=== PATIENT | male | born 1950 | race Caucasian/White ===

== ENCOUNTER 2021-09-16 10:46 | Inpatient (IN) | payer BC, MEDICARE ==
--- NOTE | 2021-09-16 11:12 | XR ---
EXAMINATION TYPE: XR chest 2V DATE OF EXAM: 09/16/2021 COMPARISON: Chest x-ray May 31, 2013 HISTORY: Shortness of breath. COVID positive. TECHNIQUE: Frontal and lateral views of the chest are obtained. FINDINGS: There is no suspicious new focal air space opacity, pleural effusion, or pneumothorax seen . The cardiac silhouette size is stable and within normal limits. The osseous structures are intac t. IMPRESSION: No suspicious acute pulmonary process.
[2021-09-16] MEDS ORDERED: IPRATROPIUM-ALBUTEROL 3 ML NEB INHALATION STA (11:45)
[2021-09-16] MEDS ORDERED: DEXAMETHASONE SOD PHOSPHATE 10 MG/ML 1 ML VIAL IVP STA (11:45)
--- NOTE | 2021-09-16 12:17 | ED ---
General Adult HPI - General Chief complaint: Shortness of Breath Stated complaint: MEAGAN Time Seen by Provider: 09/16/21 11:23 Source: patient Mode of arrival: ambulatory Limitations: no limitations - History of Present Illness Initial comments: 70-year-old male with a past medical history of COPD presents to the emergency room for a chief complaint of shortness of breath. Patient states were about one week he has had upper respiratory symptoms. States that he has been short of breath for the past day or so. Patient does have a history of COPD and is an active smoker. Patient did take a Medrol Dosepak and Bactrim. He has been doing his inhaler.Patient has no other complaints at this time including chest pain, abdominal pain, nausea or vomiting, headache, or visual changes. - Related Data Home Medications Medication Instructions Recorded Confirmed Albuterol Sulfate [Albuterol 2 puff PO RT-QID PRN 09/16/21 09/16/21 Sulfate Hfa] Allergies Allergy/AdvReac Type Severity Reaction Status Date / Time No Known Allergies Allergy Verified 09/16/21 12:19 Review of Systems ROS Statement: Those systems with pertinent positive or pertinent negative responses have been documented in the HPI. ROS Other: All systems not noted in ROS Statement are negative. Past Medical History Past Medical History: COPD Additional Past Medical History / Comment(s): bronchitis History of Any Multi-Drug Resistant Organisms: None Reported Past Surgical History: Appendectomy, Joint Replacement, Tonsillectomy Past Psychological History: No Psychological Hx Reported Smoking Status: Current every day smoker Past Alcohol Use History: Occasional Past Drug Use History: None Reported General Exam Limitations: no limitations General appearance: alert, in no apparent distress Head exam: Present: atraumatic Eye exam: Present: normal appearance, PERRL, EOMI. Absent: scleral icterus, conjunctival injection ENT exam: Present: normal exam, mucous membranes moist Neck exam: Present: normal inspection, full ROM. Absent: tenderness Respiratory exam: Present: wheezes Cardiovascular Exam: Present: regular rate, normal rhythm, normal heart sounds GI/Abdominal exam: Present: soft, normal bowel sounds. Absent: distended, tenderness Course Vital Signs 09/16/21 09/16/21 09/16/21 10:51 12:08 14:17 Temperature 98.2 F Pulse Rate 77 67 66 Respiratory 18 20 18 Rate Blood Pressure 174/83 171/83 154/84 O2 Sat by Pulse 92 L 92 L 94 L Oximetry Medical Decision Making - Medical Decision Making Vitals are stable. Oxygenation on room air is consistently around 92 then. Patient does feel much improved with 2 L nasal cannula however. Physical exam does reveal wheezing throughout the lung alvarez. CBC and CMP are unremarkable. COVID-19 is detected. X-ray shows no suspicious acute pulmonary process. Patient was given a inhaler given he is covered positive and respiratory cannot do a DuoNeb apparently. However patient symptoms of COPD are persistent. Wheezing has continued and he has remained short of breath. At this point he has already done outpatient treatment with his inhaler as well as oral steroids. At this time we will admit patient for COPD exacerbation with IV steroids. Patient will get antibody infusion today again he is not being admitted for hypoxia associated with Covid, is being admitted for COPD exacerbation. Dr Max wang did accept admission. Pt does not want mechanical ventilation, very adamant about this. code status changed to full code without mechanical ventilation. this was verified with his daughter Akilah. - Lab Data Result diagrams: 09/16/21 12:08 09/16/21 12:08 Lab Results 09/16/21 09/16/21 09/16/21 Range/Units 10:58 12:08 12:08 WBC 5.7 (3.8-10.6) k/uL RBC 4.75 (4.30-5.90) m/uL Hgb 14.9 (13.0-17.5) gm/dL Hct 43.8 (39.0-53.0) % MCV 92.1 (80.0-100.0) fL MCH 31.3 (25.0-35.0) pg MCHC 34.0 (31.0-37.0) g/dL RDW 13.0 (11.5-15.5) % Plt Count 217 (150-450) k/uL MPV 8.2 Neutrophils % 62 % Lymphocytes % 24 % Monocytes % 10 % Eosinophils % 1 % Basophils % 1 % Neutrophils # 3.5 (1.3-7.7) k/uL Lymphocytes # 1.4 (1.0-4.8) k/uL Monocytes # 0.6 (0-1.0) k/uL Eosinophils # 0.0 (0-0.7) k/uL Basophils # 0.0 (0-0.2) k/uL Sodium 141 (137-145) mmol/L Potassium 4.3 (3.5-5.1) mmol/L Chloride 107 (98-107) mmol/L Carbon Dioxide 25 (22-30) mmol/L Anion Gap 9 mmol/L BUN 24 H (9-20) mg/dL Creatinine 0.99 (0.66-1.25) mg/dL Est GFR (CKD-EPI)AfAm >90 (>60 ml/min/1.73 sqM) Est GFR (CKD-EPI)NonAf 78 (>60 ml/min/1.73 sqM) Glucose 97 (74-99) mg/dL Calcium 9.0 (8.4-10.2) mg/dL Total Bilirubin 0.9 (0.2-1.3) mg/dL AST 52 (17-59) U/L ALT 68 H (4-49) U/L Alkaline Phosphatase 74 (38-126) U/L Total Protein 7.5 (6.3-8.2) g/dL Albumin 4.2 (3.5-5.0) g/dL Coronavirus (PCR) Detected A (Not Detectd) Disposition Clinical Impression: COPD exacerbation, Failure of outpatient treatment, COVID Disposition: ADMITTED IP TO THIS HOSP Is patient prescribed a controlled substance at d/c from ED?: No Referrals: None,Stated [Primary Care Provider] - 1-2 days Time of Disposition: 13:36
[2021-09-16 12:18] LABS: Basophils % (A) 1 %; Eosinophils % (A) 1 %; HCT 43.8 % (39.0-53.0); HGB 14.9 gm/dL (13.0-17.5); Lymphocytes # (A) 1.4 k/uL (1.0-4.8); Lymphocytes % (A) 24 %; MCH 31.3 pg (25.0-35.0); MCV 92.1 fL (80.0-100.0); Mean Platelet Volume 8.2; Monocytes # (A) 0.6 k/uL (0-1.0); Monocytes % (A) 10 %; Neutrophils # (A) 3.5 k/uL (1.3-7.7); Neutrophils % (A) 62 %; Platelet Count 217 k/uL (150-450); RBC 4.75 m/uL (4.30-5.90); WBC 5.7 k/uL (3.8-10.6)
[2021-09-16] MEDS ORDERED: ALBUTEROL HFA INHALER INHALATION STA (12:18)
[2021-09-16] MEDS ORDERED: TIOTROPIUM 2.5 MCG INHALER INHALATION STA (12:19)
[2021-09-16 12:27] LABS: ALT 68 U/L (4-49); AST 52 U/L (17-59); African American GFR (CKD) >90 (>60 ml/min/1.73 sqM); Albumin 4.2 g/dL (3.5-5.0); Alkaline Phosphatase 74 U/L (38-126); Anion Gap 9 mmol/L; Blood Urea Nitrogen 24 mg/dL (9-20); Carbon Dioxide 25 mmol/L (22-30); Chloride 107 mmol/L (98-107); Glucose 97 mg/dL (74-99); Non-African American GFR(CKD) 78 (>60 ml/min/1.73 sqM); Potassium 4.3 mmol/L (3.5-5.1); Sodium 141 mmol/L (137-145); Total Bilirubin 0.9 mg/dL (0.2-1.3); Total Protein 7.5 g/dL (6.3-8.2)
[2021-09-16] MEDS ORDERED: ACETAMINOPHEN TAB 500 MG TAB PO PRN (13:36)
[2021-09-16] MEDS ORDERED: CASIRIVIMAB (REGN10933) (EUA) 600 MG, IMDEVIMAB (REGN10987) (EUA) 600 MG in SODIUM CHLO... IVPB ONE (14:00)
[2021-09-16] MEDS ORDERED: SODIUM CHLORIDE 0.9% 50 ML IVPB ONE (14:00)
[2021-09-16] MEDS ORDERED: NALOXONE 0.4 MG/ML 1 ML VIAL IV PRN (14:14)
[2021-09-16] MEDS: SODIUM CHLORIDE 0.9% 1,000 ML IV SCH (14:35)
[2021-09-16] MEDS: ASCORBIC ACID 500 MG TAB PO SCH (14:35)
[2021-09-16] MEDS: ZINC SULFATE 220 MG CAP PO SCH (14:35)
[2021-09-16] MEDS: AZITHROMYCIN 500 MG TAB PO SCH (14:35)
[2021-09-16 14:48] LABS: C Reactive Protein 0.9 mg/dL (<1.0); Magnesium 2.2 mg/dL (1.6-2.3)
--- NOTE | 2021-09-16 14:54 | P.HPIM ---
History of Present Illness H&P Date: 09/16/21 Chief Complaint: dyspnea 70-year-old man, unvaccinated individual, with uncontrolled hypertension, COPD presented with dyspnea. Patient says that he started to feel short of breath starting 5 days ago. Shortness of breath got progressively worse. His sister had steroids that were prescribed to her, and patient was taking these along with Bactrim prescribed by his PCP. Despite these medications, patient did not improve. Patient reported chills, denied fevers, nausea, vomiting, chest pain, palpitations, syncope, presyncope, cough, sputum production, abdominal pain, diarrhea, constipation, dysuria, dyschezia, numbness/weakness of extremities. Patient is unvaccinated for Covid and asked about ivermectin as therapy. Patient is afebrile, 174/83, heart rate 77, 92% on room air. CBC is unremarkable. Chemistries are unremarkable. AST/ALT are mildly elevated. Co vid was positive. Chest x-ray was negative for acute pulmonary process. Review of Systems All Systems reviewed and pertinent positives and negatives noted in HPI, all other symptoms are negative Past Medical History Past Medical History: COPD Additional Past Medical History / Comment(s): bronchitis History of Any Multi-Drug Resistant Organisms: None Reported Past Surgical History: Appendectomy, Joint Replacement, Tonsillectomy Past Psychological History: No Psychological Hx Reported Smoking Status: Current every day smoker Past Alcohol Use History: Occasional Past Drug Use History: None Reported Medications and Allergies Home Medications Medication Instructions Recorded Confirmed Type Albuterol Sulfate [Albuterol 2 puff PO RT-QID PRN 09/16/21 09/16/21 History Sulfate Hfa] Allergies Allergy/AdvReac Type Severity Reaction Status Date / Time No Known Allergies Allergy Verified 09/16/21 12:19 Physical Exam Osteopathic Statement: *. No significant issues noted on an osteopathic structural exam other than those noted in the History and Physical/Consult. Vitals: Vital Signs Temp Pulse Resp BP Pulse Ox 09/16/21 14:17 66 18 154/84 94 L 09/16/21 12:08 67 20 171/83 92 L 09/16/21 10:51 98.2 F 77 18 174/83 92 L Intake and Output 09/15/21 09/16/21 09/16/21 22:59 06:59 14:59 Other: Weight 95.254 kg Gen: awake, alert HEENT: normocephalic, atraumatic, good hearing acuity, moist mucous membranes Resp: good air exchange, breathing comfortably with no accessory muscle use, diffuse wheezing without crackles CVS: good distal perfusion x 4, regular rate and rhythm without murmurs GI: soft, NTTP, ND : no SPT, no CVAT, moreno catheter not present MSK: no pitting edema, no clubbing Neuro: non-focal, moving all extremities Psych: cooperative, euthymic mood Results CBC & Chem 7: 09/16/21 12:08 09/16/21 12:08 Labs: Abnormal Lab Results - Last 24 Hours (Table) 09/16/21 09/16/21 Range/Units 10:58 12:08 BUN 24 H (9-20) mg/dL ALT 68 H (4-49) U/L Coronavirus (PCR) Detected A (Not Detectd) Assessment and Plan Assessment: COPD exacerbation Acute hypoxemic respiratory failure -Admit to inpatient, telemetry -Pulmonary consult -Dexamethasone -Albuterol inhaler every 4 hours inhalers -symbicort BID -spiriva daily -Follow inflammatory markers -Vitamin C/D, zinc -Could consider Remdesivir if pulmonary agrees -Azithromycin 500 daily for 5 days -rec'd monoclonal ab in the ER Uncontrolled hypertension -Started amlodipine and lisinopril Patient is a full code DVT prophylaxis with enoxaparin
[2021-09-16] MEDS: ALBUTEROL HFA INHALER INHALATION SCH ×3 (15:14→23:59)
[2021-09-16] MEDS: NICOTINE 21MG/24HR PATCH TRANSDERM SCH (15:31)
[2021-09-16] MEDS: lisinopriL 5 MG TAB PO SCH (15:31)
[2021-09-16] MEDS: amLODIPine 5 MG TAB PO SCH (15:31)
[2021-09-16] MEDS: SYMBICORT 80-4.5 MCG INHALER INHALATION SCH (19:32)
[2021-09-16] MEDS ORDERED: ALBUTEROL HFA INHALER INHALATION SCH (20:00)
[2021-09-17] MEDS: ALBUTEROL HFA INHALER INHALATION SCH ×5 (03:52→19:27)
[2021-09-17] MEDS: SYMBICORT 80-4.5 MCG INHALER INHALATION SCH ×2 (08:05→19:27)
[2021-09-17] MEDS: TIOTROPIUM 2.5 MCG INHALER INHALATION SCH (08:05)
[2021-09-17] MEDS: amLODIPine 5 MG TAB PO SCH (08:43)
[2021-09-17] MEDS: AZITHROMYCIN 500 MG TAB PO SCH (08:43)
[2021-09-17] MEDS: ZINC SULFATE 220 MG CAP PO SCH (08:43)
[2021-09-17] MEDS: ASCORBIC ACID 500 MG TAB PO SCH (08:43)
[2021-09-17] MEDS: ENOXAPARIN 40 MG/0.4 ML SYRINGE SQ SCH (08:43)
[2021-09-17] MEDS: lisinopriL 5 MG TAB PO SCH (08:43)
[2021-09-17] MEDS: NICOTINE 21MG/24HR PATCH TRANSDERM SCH (08:44)
[2021-09-17] MEDS ORDERED: DEXAMETHASONE SOD PHOSPHATE 10 MG/ML 1 ML VIAL IVP SCH ×2 (09:00)
[2021-09-17 09:47] LABS: Basophils # (A) 0.01 X 10*3/uL (0.00-0.10); Basophils % (A) 0.2 %; Eosinophils # (A) 0 X 10*3/uL (0.04-0.35); Eosinophils % (A) 0 %; HCT 40.5 % (39.6-50.0); HGB 13.2 g/dL (13.0-17.0); Lymphocytes # (A) 1.16 X 10*3/uL (0.90-5.00); Lymphocytes % (A) 21.6 %; MCH 30.3 pg (27.0-32.0); MCHC 32.6 g/dL (32.0-37.0); MCV 92.9 fL (80.0-97.0); Mean Platelet Volume 11.5 fL (9.5-12.2); Monocytes # (A) 0.53 X 10*3/uL (0.20-1.00); Monocytes % (A) 9.9 %; Neutrophils # (A) 3.64 X 10*3/uL (1.80-7.70); Neutrophils % (A) 67.7 %; Platelet Count 216 X 10*3/uL (140-440); RBC 4.36 X 10*6/uL (4.40-5.60); RDW 13.3 % (11.5-14.5); WBC 5.37 X 10*3/uL (4.50-10.00)
[2021-09-17 09:58] LABS: ALT 100 U/L (10-49); AST 62 U/L (14-35); African American GFR (CKD) 89.2 (60.0-200.0); Albumin 3.8 g/dL (3.8-4.9); Albumin/Globulin Ratio 1.58 (1.60-3.17); Alkaline Phosphatase 67 U/L (41-126); Bilirubin, Conjugated <0.20 mg/dL (0.20-0.40); Blood Urea Nitrogen 23.8 mg/dL (9.0-27.0); Calcium 8.8 mg/dL (8.7-10.3); Carbon Dioxide 24.3 mmol/L (20.0-27.5); Chloride 106 mmol/L (96-109); Globulin 2.4 g/dL (1.6-3.3); Glucose 113 mg/dL (70-110); LDH 204 U/L (120-246); Magnesium 2.5 mg/dL (1.5-2.4); Potassium 4.4 mmol/L (3.5-5.5); Sodium 139 mmol/L (135-145); Total Protein 6.2 g/dL (6.2-8.2)
[2021-09-17] MEDS: SODIUM CHLORIDE 0.9% 1,000 ML IV SCH ×2 (12:45→22:08)
--- NOTE | 2021-09-17 15:40 | P.PN ---
Subjective Progress Note Date: 09/17/21 Principal diagnosis: COVID-19 Patient examined and presented in a complaining of any new symptomatology. Continue Zocor. 4 L nasal cannula saturating 92%. He does complain of g eneralized weakness. Case discussed with RN in the emergency department. Objective - Vital Signs Vital signs: Vital Signs Temp 97.3 F L 09/17/21 15:07 Pulse 71 09/17/21 15:07 Resp 18 09/17/21 14:49 BP 143/68 09/17/21 15:07 Pulse Ox 96 09/17/21 15:07 Intake & Output 09/16/21 09/17/21 09/17/21 18:59 06:59 18:59 Weight 95.254 kg - Exam Gen: awake, alert HEENT: normocephalic, atraumatic, good hearing acuity, moist mucous membranes Resp: good air exchange, breathing comfortably with no accessory muscle use, diffuse wheezing without crackles improving CVS: good distal perfusion x 4, regular rate and rhythm without murmurs GI: soft, NTTP, ND : no SPT, no CVAT, moreno catheter not present MSK: no pitting edema, no clubbing Neuro: non-focal, moving all extremities Psych: cooperative, euthymic mood - Labs CBC & Chem 7: 09/17/21 05:58 09/17/21 05:58 Labs: Abnormal Lab Results - Last 24 Hours (Table) 09/16/21 09/17/21 09/17/21 Range/Units 14:25 05:58 05:58 RBC 4.36 L (4.40-5.60) X 10*6/uL Eosinophils # 0 L (0.04-0.35) X 10*3/uL Anion Gap 8.70 L (10.00-18.00) mmol/L BUN/Creatinine Ratio 23.80 H (12.00-20.00) Ratio Glucose 113 H (70-110) mg/dL Magnesium 2.5 H (1.5-2.4) mg/dL Ferritin 559.0 H (22.0-322.0) ng/mL Conjugated Bilirubin <0.20 L (0.20-0.40) mg/dL AST 62 H (14-35) U/L ALT 100 H (10-49) U/L Albumin/Globulin Ratio 1.58 L (1.60-3.17) g/dL Assessment and Plan Plan: Assessment: #1 COVID-19 pneumonia #2 acute hypoxic respiratory distress secondary to above #3 essential hypertension Plan: -Admit to medicine for close monitoring -Aspiration/fall precaution -Maintain saturations above 92%, continue with dexamethasone 6 mg to complete 10 days -Patient was also started on azithromycin 500 mg -Pending evaluation by pulmonary team -DVT prophylaxis Lovenox -Disposition anticipate discharge in 24-48 hrs. will require a 6 minute walk test prior to discharge for home oxygen evaluation
--- NOTE | 2021-09-17 18:19 | P.CNPUL ---
History of Present Illness Consult date: 09/17/21 Reason for consult: dyspnea History of present illness: 70-year-old male patient, known having history of COPD and hypertension, presented to the hospital after feeling short of breath for the past 5 days. He shortness breath was progressively getting worse. He is not vaccinated for COVID 19. The patient's family member provided him some steroids which he took along with Bactrim that was given to him through the primary care physician. T he patient did not improve. He continued to have chills and shortness of breath. Denied having any fever. No nausea or vomiting or diarrhea or abdominal pain. He came into the hospital with the patient was found to have a pulse ox of 92% on room air oxygen. The patient had a white second of 5.7 with a hemoglobin of 14.9 and a platelet count of 217. BUN was 24 with a creatinine of 0.99. Sodium was at 141. BUN was 24 with a creatinine of 0.9. Rest of the electrodes are all within normal limits. The patient had some mild transaminitis with an AST of 62, ALT of 100 and an alkaline phosphatase of 67, LDH level was 593 at a time of admission dropped down to 204 and the pro- calcitonin level was at 0.04 and the covid 19 testing by PCR came back positive. D-dimer was at 0.5. The chest x-ray showed no suspicious acute cardio pulmonary process. There was no evidence of any focal airspace disease. The patient was started on Decadron 6 mg IV every 24 hours. The patient was also started on Lovenox 40 mg subcu for DVT prophylaxis. Currently on normal saline at the rate of 75 mL an hour. His been maintained on Spiriva and albuterol HFA on an as needed basis. He was also started on examination vitamin C and vitamin D and zinc. MVV, the patient was initially given a monoclonal antibiotics. Subsequently, he was hospitalized for acute hypoxic respiratory failure and the patient is currently on 3 L of oxygen by nasal cannula. Is actively bronchospastic and wheezy. Review of Systems Constitutional: Reports chills, Reports fatigue, Reports poor appetite Eyes: denies as per HPI, denies blurred vision, denies bulging eye, denies decreased vision, denies diplopia, denies discharge, denies dry eye, denies irritation, denies itching, denies pain, denies photophobia, denies loss of peripheral vision, denies loss of vision, denies tunnel vision/blind spots Ears: deny: decreased hearing, ear discharge, earache, tinnitus Ears, nose, mouth and throat: Reports as per HPI Breasts: absent: as per HPI, gynecomastia Cardiovascular: Reports dyspnea on exertion Respiratory: Reports cough, Reports dyspnea Gastrointestinal: Reports as per HPI Genitourinary: Reports as per HPI Musculoskeletal: Reports as per HPI Musculoskeletal: absent: ankle pain, ankle stiffness, ankle swelling, as per HPI , elbow pain, elbow stiffness, elbow swelling, foot pain, foot stiffness, foot swelling, hand pain, hand stiffness, hand swelling, hip pain, hip stiffness, hip swelling, knee pain, knee stiffness, knee swelling, shoulder pain, shoulder stiffness, shoulder swelling, wrist pain, wrist stiffness, wrist swelling Integumentary: Reports as per HPI Neurological: Reports as per HPI Psychiatric: Reports as per HPI Endocrine: Reports as per HPI Hematologic/Lymphatic: Reports as per HPI Allergic/Immunologic: Reports as per HPI Past Medical History Past Medical History: COPD, Pneumonia Additional Past Medical History / Comment(s): Tracheobronchitis, BPH, gout a couple times in feet, R sided sciatica, past concussions. History of Any Multi-Drug Resistant Organisms: None Reported Past Surgical History: Appendectomy, Joint Replacement, Tonsillectomy Additional Past Surgical History / Comment(s): R hemiarthroplasty d/t fracture, dupytren's contractures/bilaterally Past Anesthesia/Blood Transfusion Reactions: No Reported Reaction Smoking Status: Current every day smoker - Past Family History Father Additional Family Medical History / Comment(s): Lung disease/smoker. Mother Additional Family Medical History / Comment(s): Lung disease/smoker Medications and Allergies Home Medications Medication Instructions Recorded Confirmed Type Albuterol Sulfate [Albuterol 2 puff PO RT-QID PRN 09/16/21 09/16/21 History Sulfate Hfa] Allergies Allergy/AdvReac Type Severity Reaction Status Date / Time No Known Allergies Allergy Verified 09/16/21 12:19 Physical Exam Vitals: Vital Signs Temp Pulse Pulse Resp BP BP Pulse Ox 09/17/21 15:07 97.3 F L 71 143/68 96 09/17/21 14:49 98.5 F 76 18 132/66 97 09/17/21 13:23 98.4 F 09/17/21 12:44 66 18 124/74 93 L 09/17/21 06:00 98.7 F 84 20 124/100 93 L 09/17/21 03:20 97.3 F L 67 18 117/95 100 09/16/21 22:40 98.7 F 76 16 139/92 96 Intake and Output 09/17/21 09/17/21 09/17/21 06:59 14:59 22:59 Other: Weight 95.254 kg Gen. appearance the patient is calm and comfortable and the patient's currently on 3 L of Oxymizer cannula to bring his saturation above 90% at 96% saturation. Head exam was generally normal. There was no scleral icterus or corneal arcus. Mucous membranes were moist. HEENT: normocephalic, atraumatic, good hearing acuity, moist mucous membranes Resp: good air exchange, breathing comfortably with no accessory muscle use, diffuse wheezing without crackles Cardiac exam revealed the PMI to be normally situated and sized. The rhythm was regular and no extrasystoles were noted during several minutes of auscultation. The first and second heart sounds were normal and physiologic splitting of the second heart sound was noted. There were no murmurs, rubs, clicks, or gallops. Abdominal exam revealed normal bowel sounds. The abdomen was soft, non-tender, and without masses, organomegaly, or appreciable enlargement of the abdominal aorta. : no SPT, no CVAT, moreno catheter not present Examination of the extremities revealed easily palpable radial, femoral and pedal pulses. There was no cyanosis, clubbing or edema. Examination of the skin revealed no evidence of significant rashes, suspicious appearing nevi or other concerning lesions. Neurologically, the patient is awake and alert and the patient does not have any focal neurological deficit. Cranial nerves are essentially intact. Psych: cooperative, euthymic mood Results - Laboratory Findings CBC and BMP: 09/17/21 05:58 09/17/21 05:58 PT/INR, D-dimer D-Dimer 0.50 mg/L FEU (<0.60) 09/17/21 05:58 Abnormal lab findings: Abnormal Labs 09/16/21 09/16/21 09/16/21 10:58 12:08 14:25 RBC Eosinophils # Anion Gap BUN 24 H BUN/Creatinine Ratio Glucose Magnesium Ferritin 559.0 H Conjugated Bilirubin AST ALT 68 H Albumin/Globulin Ratio Coronavirus (PCR) Detected A 09/17/21 09/17/21 05:58 05:58 RBC 4.36 L Eosinophils # 0 L Anion Gap 8.70 L BUN BUN/Creatinine Ratio 23.80 H Glucose 113 H Magnesium 2.5 H Ferritin Conjugated Bilirubin <0.20 L AST 62 H ALT 100 H Albumin/Globulin Ratio 1.58 L Coronavirus (PCR) - Diagnostic Findings Chest x-ray: image reviewed Assessment and Plan Plan: 1 acute COVID 19 infection, questionable pneumonia. Chest x-ray is free of any pulmonary infiltrates at this point in time. The patient was mildly hypoxic at time of admission currently is on 3 L by nasal cannula to maintain saturation above 90%. The patient received monoclonal antibodies in the emergency department. Currently is hospitalized for an acute COVID 19 related pneumonia possibly and COPD exacerbation. The patient is not vaccinated for COVID 19. 2 acute hypoxic respiratory failure currently on 3 L by nasal cannula. 3 acute COPD exacerbation secondary to above 4 hypertension 5 mild elevation in inflammatory markers second or COVID 19 infection 6 smoker Plan The patient will be kept on oxygen and the fluid be titrated to maintain saturation above 90% Discontinue the Decadron and put the patient on IV Solu Medrol 60 mg every 6 hours regarding his COPD exacerbation COVID 19 related pneumonia. Start the patient on Remdesivir per protocol Continue combination of Symbicort and Spiriva as maintenance for COPD Physical examination Lovenox 40 mg subcu for DVT prophylaxis Chest x-ray is free of any acute pulmonary infiltrates Monitor oxygenation we'll continue to follow. Repeat chest x-ray with next 24- 48 hours.
[2021-09-17] MEDS ORDERED: REMDESIVIR 200 MG in SODIUM CHLORIDE 0.9% 250 ML IVPB ONE (19:00)
[2021-09-17] MEDS: methylPREDNISolone SOD SUCCI 125 MG/2 ML VIAL IV SCH (23:28)
[2021-09-18] MEDS: methylPREDNISolone SOD SUCCI 125 MG/2 ML VIAL IV SCH ×4 (05:39→23:39)
[2021-09-18] MEDS: SODIUM CHLORIDE 0.9% 1,000 ML IV SCH ×3 (06:28→23:39)
[2021-09-18 07:40] LABS: Glucose,Whole Blood 147 mg/dL (75-99)
[2021-09-18] MEDS: ZINC SULFATE 220 MG CAP PO SCH (09:08)
[2021-09-18] MEDS: AZITHROMYCIN 500 MG TAB PO SCH (09:08)
[2021-09-18] MEDS: lisinopriL 5 MG TAB PO SCH (09:08)
[2021-09-18] MEDS: amLODIPine 5 MG TAB PO SCH (09:08)
[2021-09-18] MEDS: ASCORBIC ACID 500 MG TAB PO SCH (09:08)
[2021-09-18] MEDS: ENOXAPARIN 40 MG/0.4 ML SYRINGE SQ SCH (09:09)
[2021-09-18] MEDS: NICOTINE 21MG/24HR PATCH TRANSDERM SCH (09:09)
[2021-09-18] MEDS: ALBUTEROL HFA INHALER INHALATION SCH ×4 (09:45→19:17)
[2021-09-18] MEDS: TIOTROPIUM 2.5 MCG INHALER INHALATION SCH (09:45)
[2021-09-18] MEDS: SYMBICORT 80-4.5 MCG INHALER INHALATION SCH ×2 (09:45→17:36)
[2021-09-18 10:16] LABS: African American GFR (CKD) >90 (>60 ml/min/1.73 sqM); Anion Gap 8 mmol/L; Blood Urea Nitrogen 29 mg/dL (9-20); Calcium 9.1 mg/dL (8.4-10.2); Carbon Dioxide 25 mmol/L (22-30); Chloride 107 mmol/L (98-107); Glucose 157 mg/dL (74-99); Non-African American GFR(CKD) 83 (>60 ml/min/1.73 sqM); Potassium 4.9 mmol/L (3.5-5.1); Sodium 140 mmol/L (137-145)
[2021-09-18 10:26] LABS: Basophils % (A) 0 %; Eosinophils % (A) 0 %; HCT 47.5 % (39.0-53.0); Lymphocytes # (A) 0.9 k/uL (1.0-4.8); Lymphocytes % (A) 11 %; MCH 30.7 pg (25.0-35.0); MCHC 31.6 g/dL (31.0-37.0); Mean Platelet Volume 8.3; Monocytes # (A) 0.2 k/uL (0-1.0); Monocytes % (A) 3 %; Neutrophils % (A) 86 %; Platelet Count 263 k/uL (150-450); RBC 4.88 m/uL (4.30-5.90); RDW 13.7 % (11.5-15.5); WBC 8.2 k/uL (3.8-10.6)
[2021-09-18 10:33] LABS: MCV 97.2 fL (80.0-100.0)
[2021-09-18 11:51] LABS: Glucose,Whole Blood 201 mg/dL (75-99)
--- NOTE | 2021-09-18 12:20 | P.PN ---
Subjective Progress Note Date: 09/18/21 70-year-old male patient, known having history of COPD and hypertension, presented to the hospital after feeling short of breath for the past 5 days. He shortness breath was progressively getting worse. He is not vaccinated for COVID 19. The patient's family member provided him some steroids which he took along with Bactrim that was given to him through the primary care physician. The patient did not improve. He continued to have chills and shortness of breath. Denied having any fever. No nausea or vomiting or diarrhea or abdominal pain. He came into the hospital with the patient was found to have a pulse ox of 92% on room air oxygen. The patient had a white second of 5.7 with a hemoglobin of 14.9 and a platelet count of 217. BUN was 24 with a creatinine of 0.99. Sodium was at 141. BUN was 24 with a creatinine of 0.9. Rest of the electrodes are all within normal limits. The patient had some mild transaminitis with an AST of 62, ALT of 100 and an alkaline phosphatase of 67, LDH level was 593 at a time of admission dropped down to 204 and the pro- calcitonin level was at 0.04 and the covid 19 testing by PCR came back positive. D-dimer was at 0.5. The chest x-ray showed no suspicious acute cardio pulmonary process. There was no evidence of any focal airspace disease. The patient was started on Decadron 6 mg IV every 24 hours. The patient was also started on Lovenox 40 mg subcu for DVT prophylaxis. Currently on normal saline at the rate of 75 mL an hour. His been maintained on Spiriva and albuterol HFA on an as needed basis. He was also started on examination vitamin C and vitamin D and zinc. MVV, the patient was initially given a monoclonal antibiotics. Subsequently, he was hospitalized for acute hypoxic respiratory failure and the patient is currently on 3 L of oxygen by nasal cannula. Is actively bronchospastic and wheezy. The patient is seen today 09/18/2021 in follow-up on the regular medical floor. He is currently resting comfortably in bed. Awake and alert in no acute distress. He states he is breathing about the same today compared to yesterday. He is maintaining O2 saturation in the mid 90s on 3 L/m per nasal cannula. He is afebrile. Hemodynamically stable. White count 8.2. Hemoglobin 15.0. Lymphocytes 0.9. Sodium 140. Potassium 4.9. Creatinine 0.94. Glucose 157. He remains on Symbicort, Spiriva, albuterol, IV Solu-Medrol. This is day #2 of Remdesivir. NicoDerm patch in place. Continued on vitamin supplements and Lo venox. Empiric antibiotics in the form of azithromycin. Objective - Vital Signs Vital signs: Vital Signs Temp 97.6 F 09/18/21 07:42 Pulse 53 L 09/18/21 07:42 Resp 18 09/18/21 07:42 BP 123/67 09/18/21 07:42 Pulse Ox 97 09/18/21 07:42 Intake & Output 09/17/21 09/18/21 09/18/21 18:59 06:59 18:59 Intake Total 237 Balance 237 Weight 95.254 kg Intake: Oral 237 Other: # Voids 1 - Exam Gen. appearance: This is a pleasant 70-year-old male patient, calm and comfortable and the patient's currently on 3 L of oxygen per nasal cannula Head exam was generally normal. There was no scleral icterus or corneal arcus. Mucous membranes were moist. HEENT: normocephalic, atraumatic, good hearing acuity, moist mucous membranes Resp: good air exchange, breathing comfortably with no accessory muscle use, diffuse wheezing without crackles Cardiac exam revealed the PMI to be normally situated and sized. The rhythm was regular and no extrasystoles were noted during several minutes of auscultation. The first and second heart sounds were normal and physiologic splitting of the second heart sound was noted. There were no murmurs, rubs, clicks, or gallops. Abdominal exam revealed normal bowel sounds. The abdomen was soft, non-tender, and without masses, organomegaly, or appreciable enlargement of the abdominal aorta. : no SPT, no CVAT, moreno catheter not present Examination of the extremities revealed easily palpable radial, femoral and [place] pulses. There was no cyanosis, clubbing or edema. Examination of the skin revealed no evidence of significant rashes, suspicious appearing nevi or other concerning lesions. Neurologically, the patient is awake and alert and the patient does not have any focal neurological deficit. Cranial nerves are essentially intact. Psych: cooperative, euthymic mood - Labs CBC & Chem 7: 09/18/21 09:43 09/18/21 09:43 Labs: Abnormal Lab Results - Last 24 Hours (Table) 09/18/21 09/18/21 09/18/21 Range/Units 07:38 09:43 09:43 Lymphocytes # 0.9 L (1.0-4.8) k/uL BUN 29 H (9-20) mg/dL Glucose 157 H (74-99) mg/dL POC Glucose (mg/dL) 147 H (75-99) mg/dL 09/18/21 Range/Units 11:49 Lymphocytes # (1.0-4.8) k/uL BUN (9-20) mg/dL Glucose (74-99) mg/dL POC Glucose (mg/dL) 201 H (75-99) mg/dL Assessment and Plan Assessment: 1 acute COVID 19 infection, questionable pneumonia. Chest x-ray is free of any pulmonary infiltrates at this point in time. The patient was mildly hypoxic at time of admission currently is on 3 L by nasal cannula to maintain saturation above 90%. The patient received monoclonal antibodies in the emergency department. Currently is hospitalized for an acute COVID 19 related pneumonia possibly and COPD exacerbation. The patient is not vaccinated for COVID 19. He was initiated on Remdesivir. 2 acute hypoxic respiratory failure currently on 3 L by nasal cannula. 3 acute COPD exacerbation secondary to above 4 hypertension 5 mild elevation in inflammatory markers second or COVID 19 infection 6 smoker Plan: The patient was seen and evaluated today Stable and on 3 L nasal cannula Day #2 of Remdesivir Continue Lovenox, IV Cymetra, vitamin supplements Continue Symbicort, Spiriva, albuterol Educated regarding the importance of complete smoking cessation NicoDerm patch in place Follow-up chest x-ray, inflammatory markers in the a.m. We will continue to follow I, the cosigning physician, performed a history & physical examination of the patient. Lungs sounds bilateral end expiratory wheeze. Maintaining good O2 saturations in the 90s on 3 L/m per nasal cannula. I discussed the assessment and plan of care with my nurse practitioner, Akilah Spencer. I attest to the above note as dictated by her.
[2021-09-18] MEDS: INSULIN ASPART (NovoLOG) 100 UNIT/ML VIAL SQ SCH ×3 (13:26→21:14)
[2021-09-18 13:33] VITALS: BMI 26.9
--- NOTE | 2021-09-18 16:50 | P.PN ---
Subjective Progress Note Date: 09/18/21 Principal diagnosis: COVID-19 Patient was examined at bedside today not complaining of any worsening symptomatology. Continues to complains of shortness of breath. Patient was a mbulating to the bathroom and started tripod however maintain saturations continues to be on 3 L. Case discussed with RN. Objective - Vital Signs Vital signs: Vital Signs Temp 97.9 F 09/18/21 14:00 Pulse 81 09/18/21 14:00 Resp 20 09/18/21 14:00 BP 158/77 09/18/21 14:00 Pulse Ox 97 09/18/21 07:42 Intake & Output 09/17/21 09/18/21 09/18/21 18:59 06:59 18:59 Intake Total 237 Balance 237 Weight 95.254 kg 95.254 kg Intake: Oral 237 Other: # Voids 1 - Exam Gen: awake, alert HEENT: normocephalic, atraumatic, good hearing acuity, moist mucous membranes Resp: good air exchange, breathing comfortably with no accessory muscle use, diffuse wheezing without crackles improving slightly improving compared to yesterday however significant wheezing. CVS: good distal perfusion x 4, regular rate and rhythm without murmurs GI: soft, NTTP, ND : no SPT, no CVAT, moreno catheter not present MSK: no pitting edema, no clubbing Neuro: non-focal, moving all extremities Psych: cooperative, euthymic mood - Labs CBC & Chem 7: 09/18/21 09:43 09/18/21 09:43 Labs: Abnormal Lab Results - Last 24 Hours (Table) 09/18/21 09/18/21 09/18/21 Range/Units 07:38 09:43 09:43 Lymphocytes # 0.9 L (1.0-4.8) k/uL BUN 29 H (9-20) mg/dL Glucose 157 H (74-99) mg/dL POC Glucose (mg/dL) 147 H (75-99) mg/dL 09/18/21 Range/Units 11:49 Lymphocytes # (1.0-4.8) k/uL BUN (9-20) mg/dL Glucose (74-99) mg/dL POC Glucose (mg/dL) 201 H (75-99) mg/dL Assessment and Plan Plan: Assessment: #1 COVID-19 pneumonia #2 acute hypoxic respiratory distress secondary to above #3 essential hypertension #4 COPD exacerbation secondary to above Plan: -Admit to medicine for close monitoring -Aspiration/fall precaution -Maintain saturations above 92%, eczematous on switched to methylprednisolone ev kate 6 hours by pulmonary. -Patient is also concerned as severe -Patient was also started on azithromycin 500 mg -DVT prophylaxis Lovenox -Disposition anticipate discharge in 24-48 hrs. will require a 6 minute walk test prior to discharge for home oxygen evaluation
[2021-09-18 17:42] LABS: Glucose,Whole Blood 147 mg/dL (75-99)
[2021-09-18] MEDS: REMDESIVIR 100 MG in SODIUM CHLORIDE 0.9% 250 ML IVPB SCH (19:47)
[2021-09-18 21:06] LABS: Glucose,Whole Blood 117 mg/dL (75-99)
[2021-09-19] MEDS: methylPREDNISolone SOD SUCCI 125 MG/2 ML VIAL IV SCH (05:45)
[2021-09-19 07:37] LABS: Glucose,Whole Blood 157 mg/dL (75-99)
[2021-09-19] MEDS: ZINC SULFATE 220 MG CAP PO SCH (07:52)
[2021-09-19] MEDS: AZITHROMYCIN 500 MG TAB PO SCH (07:52)
[2021-09-19] MEDS: amLODIPine 5 MG TAB PO SCH (07:52)
[2021-09-19] MEDS: INSULIN ASPART (NovoLOG) 100 UNIT/ML VIAL SQ SCH ×4 (07:53→20:48)
[2021-09-19] MEDS: NICOTINE 21MG/24HR PATCH TRANSDERM SCH (07:53)
[2021-09-19] MEDS: lisinopriL 5 MG TAB PO SCH (07:53)
[2021-09-19] MEDS: ASCORBIC ACID 500 MG TAB PO SCH (07:53)
[2021-09-19] MEDS: ENOXAPARIN 40 MG/0.4 ML SYRINGE SQ SCH (07:53)
--- NOTE | 2021-09-19 08:18 | XR ---
EXAMINATION TYPE: XR chest 1V portable DATE OF EXAM: 09/19/2021 CLINICAL HISTORY: Difficulty breathing and covid progress study. TECHNIQUE: Single AP portable frontal view of the chest is obtained. COMPARISON: Chest x-ray from 3 days earlier FINDINGS: There is chronic parenchymal fibrotic change with some increased opacity in the periphery of the right mid lung and basilar level. Cardiac size is stable and upper limits of normal. Osseous s tructures are intact. IMPRESSION: Developing peripheral right mid and basilar opacities present consistent with history of covid-19 infection.
[2021-09-19] MEDS: SYMBICORT 80-4.5 MCG INHALER INHALATION SCH ×2 (08:28→21:34)
[2021-09-19] MEDS: TIOTROPIUM 2.5 MCG INHALER INHALATION SCH (08:28)
[2021-09-19] MEDS: ALBUTEROL HFA INHALER INHALATION SCH ×4 (08:28→21:34)
[2021-09-19 09:39] LABS: C Reactive Protein <0.5 mg/dL (<1.0); LDH 452 U/L (313-618)
[2021-09-19 12:14] LABS: Glucose,Whole Blood 217 mg/dL (75-99)
--- NOTE | 2021-09-19 13:33 | P.PN ---
Subjective Progress Note Date: 09/19/21 70-year-old male patient, known having history of COPD and hypertension, presented to the hospital after feeling short of breath for the past 5 days. He shortness breath was progressively getting worse. He is not vaccinated for COVID 19. The patient's family member provided him some steroids which he took along with Bactrim that was given to him through the primary care physician. The patient did not improve. He continued to have chills and shortness of breath. Denied having any fever. No nausea or vomiting or diarrhea or abdominal pain. He came into the hospital with the patient was found to have a pulse ox of 92% on room air oxygen. The patient had a white second of 5.7 with a hemoglobin of 14.9 and a platelet count of 217. BUN was 24 with a creatinine of 0.99. Sodium was at 141. BUN was 24 with a creatinine of 0.9. Rest of the electrodes are all within normal limits. The patient had some mild transaminitis with an AST of 62, ALT of 100 and an alkaline phosphatase of 67, LDH level was 593 at a time of admission dropped down to 204 and the pro- calcitonin level was at 0.04 and the covid 19 testing by PCR came back positive. D-dimer was at 0.5. The chest x-ray showed no suspicious acute cardio pulmonary process. There was no evidence of any focal airspace disease. The patient was started on Decadron 6 mg IV every 24 hours. The patient was also started on Lovenox 40 mg subcu for DVT prophylaxis. Currently on normal saline at the rate of 75 mL an hour. His been maintained on Spiriva and albuterol HFA on an as needed basis. He was also started on examination vitamin C and vitamin D and zinc. MVV, the patient was initially given a monoclonal antibiotics. Subsequently, he was hospitalized for acute hypoxic respiratory failure and the patient is currently on 3 L of oxygen by nasal cannula. Is actively bronchospastic and wheezy. The patient is seen today 09/18/2021 in follow-up on the regular medical floor. He is currently resting comfortably in bed. Awake and alert in no acute distress. He states he is breathing about the same today compared to yesterday. He is maintaining O2 saturation in the mid 90s on 3 L/m per nasal cannula. He is afebrile. Hemodynamically stable. White count 8.2. Hemoglobin 15.0. Lymphocytes 0.9. Sodium 140. Potassium 4.9. Creatinine 0.94. Glucose 157. He remains on Symbicort, Spiriva, albuterol, IV Solu-Medrol. This is day #2 of Remdesivir. NicoDerm patch in place. Continued on vitamin supplements and Lo venox. Empiric antibiotics in the form of azithromycin. The patient is seen today 09/19/2021 in follow-up on the regular medical floor. Awake and alert in no acute distress. He did decline his Remdesivir today. Chest x-ray reveals peripheral right mid and basilar opacities persistent and consistent with COVID-19 infection He is continued on Symbicort, Spiriva, Decadron, Lovenox. NicoDerm patch in place. Maintaining O2 saturations in the mid 90s on 3 L/m per nasal cannula. He is afebrile. Hemodynamically stable. Blood glucose 212. D-dimer 0.54. LDH 452. C-reactive protein less than 0.5. Objective - Vital Signs Vital signs: Vital Signs Temp 97.6 F 09/19/21 04:43 Pulse 79 09/19/21 04:43 Resp 18 09/19/21 04:43 BP 117/61 09/19/21 04:43 Pulse Ox 98 09/19/21 04:43 Intake & Output 09/18/21 09/19/21 09/19/21 18:59 06:59 18:59 Intake Total 1137 900 Balance 1137 900 Weight 95.254 kg Intake: Intake, IV Titration 900 900 Amount Sodium Chloride 0.9% 1, 900 900 000 ml @ 75 mls/hr IV . [id number] [facility] Rx#:[id number] Oral 237 Other: Voiding Method Urinal - Exam Gen. appearance: This is a pleasant 70-year-old male patient, calm and comfortable and the patient's currently on 3 L of oxygen per nasal cannula Head exam was generally normal. There was no scleral icterus or corneal arcus. Mucous membranes were moist. HEENT: normocephalic, atraumatic, good hearing acuity, moist mucous membranes Resp: good air exchange, breathing comfortably with no accessory muscle use, diffuse wheezing with scattered crackles Cardiac exam revealed the PMI to be normally situated and sized. The rhythm was regular and no extrasystoles were noted during several minutes of auscultation. The first and second heart sounds were normal and physiologic splitting of the second heart sound was noted. There were no murmurs, rubs, clicks, or gallops. Abdominal exam revealed normal bowel sounds. The abdomen was soft, non-tender, and without masses, organomegaly, or appreciable enlargement of the abdominal aorta. : no SPT, no CVAT, moreno catheter not present Examination of the extremities revealed easily palpable radial, femoral and pedal pulses. There was no cyanosis, clubbing or edema. Examination of the skin revealed no evidence of significant rashes, suspicious appearing nevi or other concerning lesions. Neurologically, the patient is awake and alert and the patient does not have any focal neurological deficit. Cranial nerves are essentially intact. Psych: cooperative, euthymic mood - Labs CBC & Chem 7: 09/18/21 09:43 09/18/21 09:43 Labs: Abnormal Lab Results - Last 24 Hours (Table) 09/18/21 09/18/21 09/19/21 Range/Units 17:35 20:59 07:35 POC Glucose (mg/dL) 147 H 117 H 157 H (75-99) mg/dL 09/19/21 Range/Units 12:12 POC Glucose (mg/dL) 217 H (75-99) mg/dL Assessment and Plan Assessment: 1 acute COVID 19 infection, questionable pneumonia. Chest x-ray is free of any pulmonary infiltrates at this point in time. The patient was mildly hypoxic at time of admission currently is on 3 L by nasal cannula to maintain saturation above 90%. The patient received monoclonal antibodies in the emergency department. Currently is hospitalized for an acute COVID 19 related pneumonia possibly and COPD exacerbation. The patient is not vaccinated for COVID 19. He was initiated on Remdesivir. 2 acute hypoxic respiratory failure currently on 3 L by nasal cannula. 3 acute COPD exacerbation secondary to above 4 hypertension 5 mild elevation in inflammatory markers second or COVID 19 infection 6 smoker Plan: The patient was seen and evaluated today Chest x-ray and labs reviewed Stable and on 3 L nasal cannula Declined his Remdesivir Continue Lovenox, IV Solu-Medrol, vitamin supplements Continue Symbicort, Spiriva, albuterol NicoDerm patch in place Probable home in the a.m. We will continue to follow Neftali, the cosigning physician, jonah a history & physical examination of the patient. Lungs sounds bilateral end expiratory wheeze with few scattered crackles. Maintaining O2 saturations in the 90s on 3 L/m per nasal cannula. I discussed the assessment and plan of care with my nurse practitioner, Akilah Spencer. I attest to the above note as dictated by her.
[2021-09-19 16:54] LABS: Glucose,Whole Blood 81 mg/dL (75-99)
--- NOTE | 2021-09-19 17:14 | P.PN ---
Subjective Progress Note Date: 09/19/21 History of present illness: 70-year-old male patient, known having history of COPD and hypertension, presen alvaro to the hospital after feeling short of breath for the past 5 days. He shortness breath was progressively getting worse. He is not vaccinated for COVID 19. The patient's family member provided him some steroids which he took along with Bactrim that was given to him through the primary care physician. The patient did not improve. He continued to have chills and shortness of breath. Denied having any fever. No nausea or vomiting or diarrhea or abdominal pain. He came into the hospital with the patient was found to have a pulse ox of 92% on room air oxygen. The patient had a white second of 5.7 with a hemoglobin of 14.9 and a platelet count of 217. BUN was 24 with a creatinine of 0.99. Sodium was at 141. BUN was 24 with a creatinine of 0.9. Rest of the electrodes are all within normal limits. The patient had some mild transaminitis with an AST of 62, ALT of 100 and an alkaline phosphatase of 67, LDH level was 593 at a time of admission dropped down to 204 and the pro-calc itonin level was at 0.04 and the covid 19 testing by PCR came back positive. D- dimer was at 0.5. The chest x-ray showed no suspicious acute cardio pulmonary process. There was no evidence of any focal airspace disease. The patient was started on Decadron 6 mg IV every 24 hours. The patient was also started on Lovenox 40 mg subcu for DVT prophylaxis. Currently on normal saline at the rate of 75 mL an hour. His been maintained on Spiriva and albuterol HFA on an as needed basis. He was also started on examination vitamin C and vitamin D and zinc. MVV, the patient was initially given a monoclonal antibiotics. Subsequently, he was hospitalized for acute hypoxic respiratory failure and the patient is currently on 3 L of oxygen by nasal cannula. Is actively bronchospastic and wheezy. The patient is seen today 09/18/2021 in follow-up on the regular medical floor. He is currently resting comfortably in bed. Awake and alert in no acute distress. He states he is breathing about the same today compared to yesterday. He is maintaining O2 saturation in the mid 90s on 3 L/m per nasal cannula. He is afebrile. Hemodynamically stable. White count 8.2. Hemoglobin 15.0. Lymphocytes 0.9. Sodium 140. Potassium 4.9. Creatinine 0.94. Glucose 157. He remains on Symbicort, Spiriva, albuterol, IV Solu-Medrol. This is day #2 of Remdesivir. NicoDerm patch in place. Continued on vitamin supplements and Lovenox. Empiric antibiotics in the form of azithromycin. Interval history: Patient was examined at bedside. He still reports exertional dyspnea. Denies any chest pain. Is currently on 3 L nasal cannula satting 98%. Discussed with RN pulmonary plan to switch IV sedative withdrawal to oral Decadron. Patient declined Remdesivir today Objective - Vital Signs Vital signs: Vital Signs Temp 98.4 F 09/19/21 14:00 Pulse 84 09/19/21 14:00 Resp 18 09/19/21 04:43 BP 118/64 09/19/21 14:00 Pulse Ox 92 L 09/19/21 14:00 Intake & Output 09/18/21 09/19/21 09/19/21 18:59 06:59 18:59 Intake Total 1137 900 Output Total 550 Balance 1137 900 -550 Weight 95.254 kg Intake: Intake, IV Titration 900 900 Amount Sodium Chloride 0.9% 1, 900 900 000 ml @ 75 mls/hr IV . [id number] [facility] Rx#:[id number] Oral 237 Output: Urine 550 Other: Voiding Method Urinal - Exam Gen. appearance: This is a pleasant 70-year-old male patient, calm and comfortable and the patient's currently on 3 L of oxygen per nasal cannula Head exam was generally normal. There was no scleral icterus or corneal arcus. Mucous membranes were moist. HEENT: normocephalic, atraumatic, good hearing acuity, moist mucous membranes Resp: good air exchange, breathing comfortably with no accessory muscle use, diffuse wheezing with scattered crackles Cardiac exam revealed the PMI to be normally situated and sized. The rhythm was regular and no extrasystoles were noted during several minutes of auscultation. The first and second heart sounds were normal and physiologic splitting of the second heart sound was noted. There were no murmurs, rubs, clicks, or gallops. Abdominal exam revealed normal bowel sounds. The abdomen was soft, non-tender, and without masses, organomegaly, or appreciable enlargement of the abdominal aorta. : no SPT, no CVAT, moreno catheter not present Examination of the extremities revealed easily palpable radial, femoral and pedal pulses. There was no cyanosis, clubbing or edema. Examination of the skin revealed no evidence of significant rashes, suspicious appearing nevi or other concerning lesions. Neurologically, the patient is awake and alert and the patient does not have any focal neurological deficit. Cranial nerves are essentially intact. Psych: cooperative, euthymic mood - Labs CBC & Chem 7: 09/18/21 09:43 09/18/21 09:43 Labs: Abnormal Lab Results - Last 24 Hours (Table) 09/18/21 09/18/21 09/19/21 Range/Units 17:35 20:59 07:35 POC Glucose (mg/dL) 147 H 117 H 157 H (75-99) mg/dL 09/19/21 Range/Units 12:12 POC Glucose (mg/dL) 217 H (75-99) mg/dL Assessment and Plan Plan: 1 acute COVID 19 infection, questionable pneumonia. Chest x-ray is free of any pulmonary infiltrates at this point in time. The patient was mildly hypoxic at time of admission currently is on 3 L by nasal cannula to maintain saturation above 90%. The patient received monoclonal antibodies in the emergency department. Currently is hospitalized for an acute COVID 19 related pneumonia possibly and COPD exacerbation. The patient is not vaccinated for COVID 19. He was initiated on Remdesivir. 2 acute hypoxic respiratory failure currently on 3 L by nasal cannula. 3 acute COPD exacerbation secondary to above 4 hypertension 5 mild elevation in inflammatory markers second or COVID 19 infection 6 smoker Plan: The patient was seen and evaluated today Chest x-ray and labs reviewed Stable and on 3 L nasal cannula Declined his Remdesivir Continue Lovenox, IV Solu-Medrol, vitamin supplements Continue Symbicort, Spiriva, albuterol NicoDerm patch in place Probable home in the a.m. We will continue to follow
[2021-09-19] MEDS: REMDESIVIR 100 MG in SODIUM CHLORIDE 0.9% 250 ML IVPB SCH (19:38)
[2021-09-19 20:47] LABS: Glucose,Whole Blood 204 mg/dL (75-99)
[2021-09-19] MEDS: SODIUM CHLORIDE 0.9% 1,000 ML IV SCH (20:49)
[2021-09-20 07:46] LABS: Glucose,Whole Blood 87 mg/dL (75-99)
[2021-09-20 08:17] LABS: HCT 45.9 % (39.0-53.0); HGB 14.1 gm/dL (13.0-17.5); Hypochromasia Slight; MCH 30.2 pg (25.0-35.0); MCHC 30.6 g/dL (31.0-37.0); MCV 98.4 fL (80.0-100.0); Mean Platelet Volume 8.4; Platelet Count 255 k/uL (150-450); RBC 4.66 m/uL (4.30-5.90); RDW 13.7 % (11.5-15.5); WBC 9.4 k/uL (3.8-10.6)
[2021-09-20 08:30] LABS: ALT 59 U/L (4-49); AST 27 U/L (17-59); African American GFR (CKD) >90 (>60 ml/min/1.73 sqM); Albumin 3.4 g/dL (3.5-5.0); Alkaline Phosphatase 67 U/L (38-126); Anion Gap 3 mmol/L; Blood Urea Nitrogen 31 mg/dL (9-20); Calcium 8.8 mg/dL (8.4-10.2); Carbon Dioxide 30 mmol/L (22-30); Chloride 108 mmol/L (98-107); Glucose 85 mg/dL (74-99); Magnesium 2.3 mg/dL (1.6-2.3); Non-African American GFR(CKD) 78 (>60 ml/min/1.73 sqM); Potassium 4.3 mmol/L (3.5-5.1); Sodium 141 mmol/L (137-145); Total Bilirubin 0.6 mg/dL (0.2-1.3); Total Protein 6.3 g/dL (6.3-8.2)
[2021-09-20 08:53] VITALS: RESP 17
[2021-09-20] MEDS: ENOXAPARIN 40 MG/0.4 ML SYRINGE SQ SCH (08:59)
[2021-09-20] MEDS: AZITHROMYCIN 500 MG TAB PO SCH (09:00)
[2021-09-20] MEDS: amLODIPine 5 MG TAB PO SCH (09:00)
[2021-09-20] MEDS: INSULIN ASPART (NovoLOG) 100 UNIT/ML VIAL SQ SCH ×3 (09:00→17:28)
[2021-09-20] MEDS ORDERED: dexAMETHasone 2 MG TAB PO SCH (09:00)
[2021-09-20] MEDS: lisinopriL 5 MG TAB PO SCH (09:00)
[2021-09-20] MEDS: NICOTINE 21MG/24HR PATCH TRANSDERM SCH (09:00)
[2021-09-20] MEDS: ZINC SULFATE 220 MG CAP PO SCH (09:00)
[2021-09-20] MEDS: ASCORBIC ACID 500 MG TAB PO SCH (09:00)
[2021-09-20] MEDS: SYMBICORT 80-4.5 MCG INHALER INHALATION SCH (09:43)
[2021-09-20] MEDS: TIOTROPIUM 2.5 MCG INHALER INHALATION SCH (09:43)
[2021-09-20] MEDS: ALBUTEROL HFA INHALER INHALATION SCH ×3 (09:43→16:41)
[2021-09-20 11:31] LABS: Glucose,Whole Blood 102 mg/dL (75-99)
[2021-09-20 12:15] VITALS: BP 142/74; PULSE 66; TEMP 98.1
--- NOTE | 2021-09-20 12:35 | P.PN ---
Subjective Progress Note Date: 09/20/21 70-year-old male patient, known having history of COPD and hypertension, presented to the hospital after feeling short of breath for the past 5 days. He shortness breath was progressively getting worse. He is not vaccinated for COVID 19. The patient's family member provided him some steroids which he took along with Bactrim that was given to him through the primary care physician. The patient did not improve. He continued to have chills and shortness of breath. Denied having any fever. No nausea or vomiting or diarrhea or abdominal pain. He came into the hospital with the patient was found to have a pulse ox of 92% on room air oxygen. The patient had a white second of 5.7 with a hemoglobin of 14.9 and a platelet count of 217. BUN was 24 with a creatinine of 0.99. Sodium was at 141. BUN was 24 with a creatinine of 0.9. Rest of the electrodes are all within normal limits. The patient had some mild transaminitis with an AST of 62, ALT of 100 and an alkaline phosphatase of 67, LDH level was 593 at a time of admission dropped down to 204 and the pro- calcitonin level was at 0.04 and the covid 19 testing by PCR came back positive. D-dimer was at 0.5. The chest x-ray showed no suspicious acute cardio pulmonary process. There was no evidence of any focal airspace disease. The patient was started on Decadron 6 mg IV every 24 hours. The patient was also started on Lovenox 40 mg subcu for DVT prophylaxis. Currently on normal saline at the rate of 75 mL an hour. His been maintained on Spiriva and albuterol HFA on an as needed basis. He was also started on examination vitamin C and vitamin D and zinc. MVV, the patient was initially given a monoclonal antibiotics. Subsequently, he was hospitalized for acute hypoxic respiratory failure and the patient is currently on 3 L of oxygen by nasal cannula. Is actively bronchospastic and wheezy. The patient is seen today 09/18/2021 in follow-up on the regular medical floor. He is currently resting comfortably in bed. Awake and alert in no acute distress. He states he is breathing about the same today compared to yesterday. He is maintaining O2 saturation in the mid 90s on 3 L/m per nasal cannula. He is afebrile. Hemodynamically stable. White count 8.2. Hemoglobin 15.0. Lymphocytes 0.9. Sodium 140. Potassium 4.9. Creatinine 0.94. Glucose 157. He remains on Symbicort, Spiriva, albuterol, IV Solu-Medrol. This is day #2 of Remdesivir. NicoDerm patch in place. Continued on vitamin supplements and Lo venox. Empiric antibiotics in the form of azithromycin. The patient is seen today 09/19/2021 in follow-up on the regular medical floor. Awake and alert in no acute distress. He did decline his Remdesivir today. Chest x-ray reveals peripheral right mid and basilar opacities persistent and consistent with COVID-19 infection He is continued on Symbicort, Spiriva, Decadron, Lovenox. NicoDerm patch in place. Maintaining O2 saturations in the mid 90s on 3 L/m per nasal cannula. He is afebrile. Hemodynamically stable. Blood glucose 212. D-dimer 0.54. LDH 452. C-reactive protein less than 0.5. The patient is seen today 09/20/2021 in follow-up on the regular medical floor. Continues to decline Remdesivir. He is feeling better today compared to yesterday. He is continued on Symbicort, albuterol, Spiriva. He remains on Lovenox, Decadron and vitamin supplements. NicoDerm patch in place. His maintaining good O2 saturations in the mid 90s on 2 L. He is still dyspneic with minimal exertion. He is afebrile. Hemodynamically stable. White count 9.4. Hemoglobin 14.1. Sodium 141. Potassium 4.3. Creatinine 0.99. AST 27. ALT 59. Objective - Vital Signs Vital signs: Vital Signs Temp 98.1 F 09/20/21 12:14 Pulse 66 09/20/21 12:14 Resp 17 09/20/21 12:14 BP 142/74 09/20/21 12:14 Pulse Ox 94 L 09/20/21 12:14 Intake & Output 09/19/21 09/20/21 09/20/21 18:59 06:59 18:59 Intake Total 900 1100 Output Total 550 Balance 350 1100 Intake: Intake, IV Titration 900 800 Amount Sodium Chloride 0.9% 1, 900 800 000 ml @ 75 mls/hr IV . [id number] [facility] Rx#:[id number] Oral 300 Output: Urine 550 Other: Voiding Method Urinal Urinal # Voids 3 3 - Exam Gen. appearance: This is a pleasant 70-year-old male patient, calm and comfortable and currently on 2 L of oxygen per nasal cannula Head exam was generally normal. There was no scleral icterus or corneal arcus. Mucous membranes were moist. HEENT: normocephalic, atraumatic, good hearing acuity, moist mucous membranes Resp: good air exchange, breathing comfortably with no accessory muscle use, with scattered crackles Cardiac exam revealed the PMI to be normally situated and sized. The rhythm was regular and no extrasystoles were noted during several minutes of auscultation. The first and second heart sounds were normal and physiologic splitting of the second heart sound was noted. There were no murmurs, rubs, clicks, or gallops. Abdominal exam revealed normal bowel sounds. The abdomen was soft, non-tender, and without masses, organomegaly, or appreciable enlargement of the abdominal aorta. : no SPT, no CVAT, moreno catheter not present Examination of the extremities revealed easily palpable radial, femoral and ped al pulses. There was no cyanosis, clubbing or edema. Examination of the skin revealed no evidence of significant rashes, suspicious appearing nevi or other concerning lesions. Neurologically, the patient is awake and alert and the patient does not have any focal neurological deficit. Cranial nerves are essentially intact. Psych: cooperative, euthymic mood - Labs CBC & Chem 7: 09/20/21 07:50 09/20/21 07:50 Labs: Abnormal Lab Results - Last 24 Hours (Table) 09/19/21 09/20/21 09/20/21 Range/Units 20:45 07:50 07:50 MCHC 30.6 L (31.0-37.0) g/dL Chloride 108 H (98-107) mmol/L BUN 31 H (9-20) mg/dL POC Glucose (mg/dL) 204 H (75-99) mg/dL ALT 59 H (4-49) U/L Albumin 3.4 L (3.5-5.0) g/dL 09/20/21 Range/Units 11:30 MCHC (31.0-37.0) g/dL Chloride (98-107) mmol/L BUN (9-20) mg/dL POC Glucose (mg/dL) 102 H (75-99) mg/dL ALT (4-49) U/L Albumin (3.5-5.0) g/dL Assessment and Plan Assessment: 1 acute COVID 19 infection, questionable pneumonia. Chest x-ray is free of any pulmonary infiltrates at this point in time. The patient was mildly hypoxic at time of admission currently is on 3 L by nasal cannula to maintain saturation above 90%. The patient received monoclonal antibodies in the emergency department. Currently is hospitalized for an acute COVID 19 related pneumonia possibly and COPD exacerbation. The patient is not vaccinated for COVID 19. He was initiated on Remdesivir, though declined. 2 acute hypoxic respiratory failure currently on 2 L by nasal cannula. 3 acute COPD exacerbation secondary to above 4 hypertension 5 mild elevation in inflammatory markers second or COVID 19 infection 6 smoker Plan: The patient was seen and evaluated today Chest x-ray and labs reviewed Stable and on 2 L nasal cannula Declined his Remdesivir Cleared for discharge from the pulmonary standpoint May require home oxygen Complete a 10 day course of Decadron 6 mg Continue Symbicort, Spiriva, albuterol Follow-up in the office in 3-4 weeks I, the cosigning physician, performed a history & physical examination of the patient. Lungs sounds with few scattered crackles. Maintaining O2 saturations in the 90s on 2 L/m per nasal cannula. I discussed the assessment and plan of care with my nurse practitioner, Akilah Spencer. I attest to the above note as dictated by her.
--- NOTE | 2021-09-20 14:04 | P.DS ---
Providers Date of admission: 09/16/21 14:17 Expected date of discharge: 09/20/21 (if cleared by pulmonology) Attending physician: Lizbeth Peña MD Consults: 09/16/21 14:16 Consult Physician Routine Consulting Provider: Radhames Jovel Consult Reason/Comments: copd exacerbation, covid Do you want consulting provider notified?: Yes Primary care physician: Stated None - Discharge Diagnosis(es) (1) COVID Current Visit: Yes Status: Acute Hospital Course: History of present illness: 70-year-old male patient, known having history of COPD and hypertension, presented to the hospital after feeling short of breath for the past 5 days. He shortness breath was progressively getting worse. He is not vaccinated for COVID 19. The patient's family member provided him some steroids which he took along with Bactrim that was given to him through the primary care physician. The patient did not improve. He continued to have chills and shortness of breath. Denied having any fever. No nausea or vomiting or diarrhea or abdominal pain. He came into the hospital with the patient was found to have a pulse ox of 92% on room air oxygen. The patient had a white second of 5.7 with a hemoglobin of 14.9 and a platelet count of 217. BUN was 24 with a creatinine of 0.99. Sodium was at 141. BUN was 24 with a creatinine of 0.9. Rest of the electrodes are all within normal limits. The patient had some mild transaminitis with an AST of 62, ALT of 100 and an alkaline phosphatase of 67, LDH level was 593 at a time of admission dropped down to 204 and the pro- calcitonin level was at 0.04 and the covid 19 testing by PCR came back positive. D-dimer was at 0.5. The chest x-ray showed no suspicious acute cardio pulmonary process. There was no evidence of any focal airspace disease. The patient was started on Decadron 6 mg IV every 24 hours. The patient was also started on Lovenox 40 mg subcu for DVT prophylaxis. Currently on normal saline at the rate of 75 mL an hour. His been maintained on Spiriva and albuterol HFA on an as needed basis. He was also started on examination vitamin C and vitamin D and zinc. MVV, the patient was initially given a monoclonal antibiotics. Subsequently, he was hospitalized for acute hypoxic respiratory failure and the patient is currently on 3 L of oxygen by nasal cannula. Is actively bronchospastic and wheezy. Hospital course: #COVID 19 pneumonia. -Unremarkable d-dimer -Patient refused Remdesivir -The patient received monoclonal antibodies in the emergency department. -Currently is hospitalized for an acute COVID 19 related pneumonia possibly and COPD exacerbation. -The patient is not vaccinated for COVID 19. #Acute hypoxic respiratory failure secondary to COVID-19 pneumonia and COPD exacerbation -currently on 2L by nasal cannula. -Patient will be discharged home with home oxygen #Acute COPD exacerbation secondary to above -Patient was never diagnosed with COPD but he is left long smoker -Patient will be discharged home with by mouth Decadron 6 mg daily -Patient was started on inhaled steroid Symbicort and Spiriva -Resume as needed albuterol inhaler #Hypertension -Started on Norvasc 5 mg during this hospitalization prescription was given on discharge #Nicotine addiction -Patient was counseled on smoking cessation Assessment: General: non toxic, no distress, appears at stated age Derm: warm, dry Head: atraumatic, normocephalic, symmetric Eyes: EOMI, no lid lag, anicteric sclera Mouth: no lip lesion, mucus membranes moist Cardiovascular: S1S2 reg, no murmur, positive posterior tibial pulse bilateral, Lungs: Clear to auscultation bilaterally, no rhonchi, no rales , no accessory muscle use Abdominal: soft, nontender to palpation, no guarding, no appreciable organomegaly Ext: no gross muscle atrophy, no edema, no contractures Neuro: CN II-XI grossly intact, no focal neuro deficits Psych: Alert, oriented, appropriate affect. Patient Condition at Discharge: Fair Plan - Discharge Summary Discharge Rx Participant: No New Discharge Prescriptions: New Dexamethasone [Decadron] 6 mg PO DAILY #8 tablet amLODIPine [Norvasc] 5 mg PO DAILY 30 Days #30 tab Albuterol Inhaler [Ventolin Hfa Inhaler] 2 puff INHALATION RT-QID #1 each Budesonide/Formoterol Fumarate [Symbicort 160-4.5 Mcg Inhaler] 2 puff INHALATION BID #1 each Tiotropium [place] [Spiriva] 1 cap INHALATION DAILY #1 each Discontinued Albuterol Sulfate [Albuterol Sulfate Hfa] 2 puff PO RT-QID PRN PRN Reason: Shortness Of Breath Discharge Medication List Albuterol Inhaler [Ventolin Hfa Inhaler] 2 puff INHALATION RT-QID #1 each 09/20/21 [Rx] Budesonide/Formoterol Fumarate [Symbicort 160-4.5 Mcg Inhaler] 2 puff INHALATION BID #1 each 09/20/21 [Rx] Dexamethasone [Decadron] 6 mg PO DAILY #8 tablet 09/20/21 [Rx] Tiotropium Flint [Spiriva] 1 cap INHALATION DAILY #1 each 09/20/21 [Rx] amLODIPine [Norvasc] 5 mg PO DAILY 30 Days #30 tab 09/20/21 [Rx] Follow up Appointment(s)/Referral(s): Chante Mendenhall MD [REFERRING] - 09/24/21 3:00 pm (Appointment will be a telephone or video visit. 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
[2021-09-20] MEDS: SODIUM CHLORIDE 0.9% 1,000 ML IV SCH (14:10)
[2021-09-20 17:12] LABS: Glucose,Whole Blood 155 mg/dL (75-99)
== END 2021-09-20 19:26 | disposition home or self-care (01) | DRG 177 ==
LOC: EC 10:46 → 4SSUR 14:17 → 3NCARDOBS 09-17 06:42
PROVIDERS: ADMIT Internal Medicine; ATTEND Internal Medicine
DX: U07.1 COVID-19 (principal); J12.82 Pneumonia due to coronavirus disease 2019; J96.01 Acute respiratory failure with hypoxia; J44.1 Chronic obstructive pulmonary disease with (acute) exacerbation; J44.0 Chronic obstructive pulmonary disease with (acute) lower respiratory infection; F17.200 Nicotine dependence, unspecified, uncomplicated; I10 Essential (primary) hypertension; M54.31 Sciatica, right side; M10.9 Gout, unspecified; N40.0 Benign prostatic hyperplasia without lower urinary tract symptoms; Z96.641 Presence of right artificial hip joint; Z53.29 Procedure and treatment not carried out because of patient's decision for other reasons; Z71.6 Tobacco abuse counseling; Z79.899 Other long term (current) drug therapy; Z87.820 Personal history of traumatic brain injury
CPT/HCPCS: 36415; 71045; 71046; 80048; 80053; 80076; 82728; 83615; 83735; 84145; 85025; 85027; 85379; 86140; 87635; 93005; 94640; 96374; 99285

== ENCOUNTER → 2021-11-16 | Outpatient (CLI) | payer MEDICARE ==
--- NOTE | 2021-11-16 08:44 | US ---
EXAMINATION TYPE: US duplex aorta DATE OF EXAM: 11/16/2021 COMPARISON: NONE CLINICAL HISTORY: Z72.0 TOBACCO USE. Tobacco abuse. EXAM MEASUREMENTS: Abdominal Aorta: Proximal: 2.8 x 2.7 cm. Mid: 2.3 x 2.6 cm. Distal: 2.1 x 2.0 cm. Bifurcation: Obscured by overlying gas. Prox and mid aorta appear ectatic. IMPRESSION: Atheromatous change without evidence for abdominal aortic aneurysm.
== END | disposition home or self-care (01) ==
LOC: RADUSWWP 08:13
PROVIDERS: ATTEND Internal Medicine
DX: I70.0 Atherosclerosis of aorta (principal); Z72.0 Tobacco use
CPT/HCPCS: 93979

== ENCOUNTER 2022-04-16 08:01 | Day surgery (SDC) | payer MEDICARE ==
[2022-04-11 15:36] VITALS: BMI 26.9
[~2022-04-16 08:01] MED LIST: LACTATED RINGERS 1,000 ML IV SCH; LIDOCAINE 1% (10MG/ML) FOR IV START INTRADERMA PRN
[2022-04-16 08:22] VITALS: TEMP 98.1
[2022-04-16] MEDS ORDERED: PROPOFOL 10 MG/ML 20 ML VIAL IV ONE (09:12)
--- NOTE | 2022-04-16 09:15 | P.GSHP ---
History of Present Illness H&P Date: 04/16/22 Chief Complaint: Colon cancer screening 71-year-old male here today for colonoscopy. He has not had one previously. No bowel complaints. No family history of colon cancer. Past Medical History Past Medical History: COPD, Prostate Disorder Additional Past Medical History / Comment(s): Tracheobronchitis, BPH, gout a couple times in feet, R sided sciatica, past concussions. History of Any Multi-Drug Resistant Organisms: None Reported Past Surgical History: Appendectomy, Joint Replacement, Orthopedic Surgery, Tonsillectomy Additional Past Surgical History / Comment(s): PARTIAL REPLACEMENT RT HIP, dupytren's contractures/bilaterally, Past Anesthesia/Blood Transfusion Reactions: No Reported Reaction Smoking Status: Former smoker - Past Family History Father Additional Family Medical History / Comment(s): Lung disease/smoker. Mother Additional Family Medical History / Comment(s): Lung disease/smoker Medications and Allergies Home Medications Medication Instructions Recorded Confirmed Type Albuterol Inhaler [Ventolin Hfa 2 puff INHALATION RT-QID #1 each 09/20/21 04/16/22 Rx Inhaler] Allergies Allergy/AdvReac Type Severity Reaction Status Date / Time No Known Allergies Allergy Verified 04/11/22 15:26 Surgical - Exam Vital Signs Temp Pulse Resp BP Pulse Ox 98.1 F 77 16 171/90 94 L 04/16/22 08:20 04/16/22 08:20 04/16/22 08:20 04/16/22 08:20 04/16/22 08:20 Physical exam: General: Well-developed, well-nourished HEENT: Normocephalic, sclerae nonicteric Abdomen: Nontender, nondistended Extremities: No edema Neuro: Alert and oriented Assessment and Plan (1) Colon cancer screening Narrative/Plan: Will proceed with colonoscopy at this time Current Visit: Yes Status: Acute Code(s): Z12.11 - ENCOUNTER FOR SCREENING FOR MALIGNANT NEOPLASM OF COLON SNOMED Code(s): 484639698
--- NOTE | 2022-04-16 09:26 | P.PCN ---
Date of Procedure: 04/16/22 Procedure(s) Performed: PREOPERATIVE DIAGNOSIS: Colon cancer screening POSTOPERATIVE DIAGNOSIS: Diverticulosis PROCEDURE: Colonoscopy ANESTHESIA: MAC SURGEON: Zheng Smith M.D. SPECIMENS: None ENDOSCOPIC PROCEDURE: The patient was placed on the endoscopy table in the left decubitus position. The Olympus colonoscope was inserted into the anus and passed under direct visualization to the base of the cecum. The appendiceal orifice was visualized. From that point the scope was slowly withdrawn inspe cting all surfaces carefully. There were no neoplastic inflammatory or polypoid lesions throughout the cecum, ascending, transverse, descending, sigmoid and rectum. There was mild left-sided diverticulosis noted. Digital rectal examination was normal. The patient was taken to the recovery room in stable condition per anesthesia guidelines. RECOMMENDATIONS: Resume diet. Follow colonoscopy 10 years.
[2022-04-16 10:08] VITALS: BP 150/82; PULSE 63; RESP 20
== END 2022-04-16 10:18 ==
LOC: ORWHC2ENDO 08:01
PROVIDERS: ATTEND Surgery
DX: Z12.11 Encounter for screening for malignant neoplasm of colon (principal); K57.30 Diverticulosis of large intestine without perforation or abscess without bleeding; J44.9 Chronic obstructive pulmonary disease, unspecified; N40.0 Benign prostatic hyperplasia without lower urinary tract symptoms; M10.9 Gout, unspecified; M54.31 Sciatica, right side; Z90.49 Acquired absence of other specified parts of digestive tract; Z87.891 Personal history of nicotine dependence; Z83.6 Family history of other diseases of the respiratory system
CPT/HCPCS: J2704; G0121; 45378

== ENCOUNTER → 2022-11-27 | Outpatient (CLI) | payer MEDICARE ==
--- NOTE | 2022-11-28 11:33 | CA ---
Transthoracic Echo Report Name: Glynn Black Age: 71 Gender: M : 1950 Exam Date: 11/27/2022 14:55 Exam Location: [place] Echo Ht (in): 74 Wt (lb): 215 Ordering Physician: Josh Diehl MD Attending/Referring Phys: Flocculator Operator Kaila Gerard RDCS Procedure CPT: Indications: R60.9 PERIFERAL EDEMA Cardiac Hx: Technical Quality: Fair Contrast 1: Total Dose (mL): Contrast 2: Total Dose (mL): MEASUREMENTS (Male / Female) Normal Values 2D ECHO LV Diastolic Diameter PLAX 4.9 cm 4.2 - 5.9 / 3.9 - 5.3 cm LV Systolic Diameter PLAX 3.3 cm IVS Diastolic Thickness 1.2 cm 0.6 - 1.0 / 0.6 - 0.9 cm LVPW Diastolic Thickness 1.3 cm 0.6 - 1.0 / 0.6 - 0.9 cm LV Relative Wall Thickness 0.5 RV Internal Dim ED PLAX 3.2 cm LA Systolic Diameter LX 3.6 cm 3.0 - 4.0 / 2.7 - 3.8 cm LV Diastolic Volume MOD 4C 76.0 cm??? LV Systolic Volume MOD 4C 41.3 cm??? LV Ejection Fraction MOD 4C 45.7 % LV Diastolic Length 4C 8.2 cm LV Systolic Length 4C 6.7 cm LV Diastolic Volume MOD 2C 84.7 cm??? LV Systolic Volume MOD 2C 38.8 cm??? LV Ejection Fraction MOD 2C 54.2 % LV Diastolic Length 2C 7.8 cm LV Systolic Length 2C 6.3 cm LA Volume 55.8 cm??? 18 - 58 / 22 - 52 cm??? M-MODE Aortic Root Diameter MM 3.8 cm MV E Point Septal Separation 0.6 cm AV Cusp Separation MM 2.4 cm DOPPLER AV Peak Velocity 118.9 cm/s AV Peak Gradient 5.7 mmHg MV Area PHT 4.3 cm??? Mitral E Point Velocity 72.1 cm/s Mitral A Point Velocity 84.4 cm/s Mitral E to A Ratio 0.9 MV Deceleration Time 175.5 ms MV E' Velocity 7.7 cm/s Mitral E to MV E' Ratio 9.4 TR Peak Velocity 196.5 cm/s TR Peak Gradient 15.5 mmHg Right Ventricular Systolic Press 20.5 mmHg FINDINGS Left Ventricle Left ventricular ejection fraction is estimated at 55-60 %. Left ventricular cavity size normal. Mild concentric left ventricular hypertrophy. No obvious regional wall motion abnormalities. Right Ventricle Normal right ventricular size and function. Right ventricular systolic pressure within normal limits. Right Atrium Normal right atrial size. Left Atrium Normal left atrial size. Mitral Valve Structurally normal mitral valve. No mitral stenosis, regurgitation or prolapse. Aortic Valve Trileaflet aortic valve. Aortic valve sclerosis. No aortic valve stenosis or regurgitation. Tricuspid Valve Structurally normal tricuspid valve. Mild tricuspid regurgitation. Pulmonic Valve Structurally normal pulmonic valve. No pulmonic regurgitation. Pericardium Normal pericardium. No pericardial effusion. Aorta Mild aortic dilatation at the level of the sinuses of valsalva 38 mm CONCLUSIONS Normal LV systolic function. Mild concentric LVH Normal RV dimension and systolic function Overall normal intracardiac valves Previewed by: Dr. Jaime Rocha MD (Electronically Signed) Final Date: 28 November 2022 11:32
== END | disposition home or self-care (01) ==
LOC: RADECHMAIN 14:49
PROVIDERS: ATTEND Family Medicine
DX: I51.7 Cardiomegaly (principal)
CPT/HCPCS: 93306

== ENCOUNTER → 2022-12-09 | Outpatient (CLI) | payer MEDICARE ==
--- NOTE | 2022-12-09 16:18 | US ---
EXAMINATION TYPE: US venous doppler duplex LE RT DATE OF EXAM: 12/09/2022 2:28 PM COMPARISON: NONE CLINICAL HISTORY: R60.9 M79.604. Redness and swelling to right leg SIDE PERFORMED: Right TECHNIQUE: The lower extremity deep venous system is examined utilizing real time linear array sonog elisabeth with graded compression, doppler sonography and color-flow sonography. VESSELS IMAGED: Common Femoral Vein Deep Femoral Vein Greater Saphenous Vein * Femoral Vein Popliteal Vein Small Saphenous Vein * Proximal Calf Veins (* superficial vessels) Right Leg: Negative for DVT IMPRESSION: 1. Right lower extremity ultrasound negative for deep venous thrombosis.
--- NOTE | 2022-12-11 06:52 | US ---
EXAMINATION TYPE: US arterial LE single level DATE OF EXAM: 12/09/2022 2:42 PM CLINICAL HISTORY: R60.9 M79.604 PERIPHERAL EDEMA, PAIN. Redness and swelling to right leg History of: Smoker: Previous Hypertension: No Diabetic: No Hyperlipidemia: No TIA/CVA: No Previous Vascular Surgery: No CAD: No HI: No Vascular Ulcers: No Claudication: No Gangrene: No Doppler Waveforms: Right: Biphasic Left: Right Brachial Pressure: 145 Left Brachial Pressure: 147 Ankle-Brachial Indices: Right: 1.0 Left: 0.8 Toe Brachial Indices: Right: 0.44 Left: 0.47 IMPRESSION: Diminished bilateral TBI values consistent with at least mild peripheral arterial diseas e in the bilateral feet. Diminished left-sided JERO consistent with at least mild peripheral arterial disease in the left lower extremity. Follow-up advised
== END | disposition home or self-care (01) ==
LOC: RADUSWWP 13:59
PROVIDERS: ATTEND Family Medicine
DX: M79.604 Pain in right leg (principal); R60.0 Localized edema
CPT/HCPCS: 93922

== ENCOUNTER 2023-06-01 18:17 | Inpatient (IN) | payer MEDICARE ==
[2023-06-01] MEDS ORDERED: methylPREDNISolone SOD SUCCI 125 MG/2 ML VIAL IV STA (18:29)
[2023-06-01] MEDS ORDERED: IPRATROPIUM-ALBUTEROL 3 ML NEB INHALATION STA ×2 (18:29→19:57)
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
[2023-06-01 19:04] LABS: Basophils % (A) 0 %; Eosinophils # (A) 0.4 k/uL (0-0.7); Eosinophils % (A) 5 %; HCT 48.7 % (39.0-53.0); HGB 15.9 gm/dL (13.0-17.5); Lymphocytes # (A) 1.3 k/uL (1.0-4.8); Lymphocytes % (A) 15 %; MCHC 32.7 g/dL (31.0-37.0); MCV 94.9 fL (80.0-100.0); Monocytes # (A) 0.5 k/uL (0-1.0); Monocytes % (A) 6 %; Neutrophils # (A) 6.2 k/uL (1.3-7.7); Neutrophils % (A) 73 %; Platelet Count 189 k/uL (150-450); RBC 5.13 m/uL (4.30-5.90); RDW 13.9 % (11.5-15.5); WBC 8.5 k/uL (3.8-10.6)
[2023-06-01] MEDS ORDERED: MAGNESIUM SULFATE-D5W PMX 1 GM in DEXTROSE/WATER 1 100ML.BAG IVPB ONE (19:08)
[2023-06-01 19:28] LABS: ALT 29 U/L (4-49); AST 34 U/L (17-59); African American GFR (CKD) 86 (>60 ml/min/1.73 sqM); Albumin 4.4 g/dL (3.5-5.0); Alkaline Phosphatase 88 U/L (38-126); Anion Gap 10 mmol/L; Blood Urea Nitrogen 18 mg/dL (9-20); Calcium 9.7 mg/dL (8.4-10.2); Carbon Dioxide 26 mmol/L (22-30); Chloride 103 mmol/L (98-107); Glucose 108 mg/dL (74-99); Magnesium 1.9 mg/dL (1.6-2.3); Non-African American GFR(CKD) 74 (>60 ml/min/1.73 sqM); Potassium 4.4 mmol/L (3.5-5.1); Sodium 139 mmol/L (137-145); Total Bilirubin 0.7 mg/dL (0.2-1.3); Total Protein 7.9 g/dL (6.3-8.2)
[2023-06-01 19:32] LABS: Partial Thromboplastin Time 27.1 sec (22.0-30.0); Prothrombin Time 10.6 sec (9.0-12.0)
[2023-06-01 19:36] LABS: NT-Pro-B-Type Natriuretic Pept 520 pg/mL
--- NOTE | 2023-06-01 19:37 | XR ---
EXAMINATION TYPE: XR chest 2V DATE OF EXAM: 06/01/2023 7:33 PM CLINICAL INDICATION:Male, 72 years old with history of difficulty breathing; [facility] COMPARISON: Chest radiographs from 09/19/2021 TECHNIQUE: XR chest 2V Frontal and lateral views of the chest. FINDINGS: Lungs/Pleura: There is flattening of the diaphragm with increased lucency of the lungs. No evidence o f pneumothorax, pleural effusion or focal consolidation. Pulmonary vascularity: Unremarkable. Heart/mediastinum: Cardiomediastinal silhouette is unremarkable. Musculoskeletal: No acute osseous pathology. Broken ribs not definitively visualized. IMPRESSION: 1. No acute cardiopulmonary disease process. 2. COPD changes.
[2023-06-01] MEDS ORDERED: NALOXONE 0.4 MG/ML 1 ML VIAL IVP PRN (20:44)
[2023-06-01] MEDS ORDERED: ACETAMINOPHEN TAB 325 MG TAB PO PRN (20:44)
[2023-06-01] MEDS: HYDROcodone/APAP 5-325MG 1 EACH TAB PO SCH (23:02)
[2023-06-01] MEDS: DOXYCYCLINE 100 MG CAP PO SCH (23:04)
[2023-06-02] MEDS: methylPREDNISolone SOD SUCCI 125 MG/2 ML VIAL IV SCH ×5 (00:12→23:49)
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
[2023-06-02] MEDS: IPRATROPIUM-ALBUTEROL 3 ML NEB INHALATION PRN (01:31)
[2023-06-02] MEDS: HYDROcodone/APAP 5-325MG 1 EACH TAB PO SCH ×4 (02:25→21:33)
[2023-06-02] MEDS ORDERED: SODIUM CHLORIDE 0.9% 1,000 ML IV ONE (04:28)
[2023-06-02] MEDS: SODIUM CHLORIDE 0.9% 1,000 ML IV SCH ×2 (05:47→18:42)
[2023-06-02] MEDS: IPRATROPIUM-ALBUTEROL 3 ML NEB INHALATION SCH ×4 (06:20→18:54)
[2023-06-02] MEDS ORDERED: IPRATROPIUM-ALBUTEROL 3 ML NEB INHALATION SCH (08:00)
[2023-06-02] MEDS: ENOXAPARIN 40 MG/0.4 ML SYRINGE SQ SCH (08:08)
[2023-06-02] MEDS: DOXYCYCLINE 100 MG CAP PO SCH ×2 (08:08→21:34)
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
[2023-06-02] MEDS: SYMBICORT 160-4.5 MCG INHALER INHALATION SCH (18:54)
[2023-06-03] MEDS: IPRATROPIUM-ALBUTEROL 3 ML NEB INHALATION PRN ×2 (00:13→03:30)
[2023-06-03] MEDS: HYDROcodone/APAP 5-325MG 1 EACH TAB PO SCH ×4 (03:54→21:59)
[2023-06-03] MEDS ORDERED: DILTIAZEM DRIP BOLUS FROM BAG 1 MG SOLN IV STA (05:52)
[2023-06-03] MEDS ORDERED: DILTIAZEM 125 MG in SODIUM CHLORIDE 0.9% 100 ML IV SCH (06:00)
[2023-06-03 06:37] LABS: Glucose,Whole Blood 155 mg/dL (70-110)
[2023-06-03] MEDS: methylPREDNISolone SOD SUCCI 125 MG/2 ML VIAL IV SCH ×3 (06:50→17:28)
[2023-06-03] MEDS ORDERED: HYDROmorphone 1 MG/ML 1 ML SYRINGE IVP PRN (08:02)
[2023-06-03] MEDS: SYMBICORT 160-4.5 MCG INHALER INHALATION SCH ×2 (08:05→20:21)
[2023-06-03] MEDS: IPRATROPIUM-ALBUTEROL 3 ML NEB INHALATION SCH ×4 (08:05→20:21)
[2023-06-03] MEDS: ENOXAPARIN 40 MG/0.4 ML SYRINGE SQ SCH (08:52)
[2023-06-03 09:06] LABS: African American GFR (CKD) 89 (>60 ml/min/1.73 sqM); Anion Gap 9 mmol/L; Blood Urea Nitrogen 27 mg/dL (9-20); Calcium 9.4 mg/dL (8.4-10.2); Carbon Dioxide 23 mmol/L (22-30); Chloride 106 mmol/L (98-107); Glucose 149 mg/dL (74-99); Magnesium 2.2 mg/dL (1.6-2.3); Non-African American GFR(CKD) 77 (>60 ml/min/1.73 sqM); Potassium 4.6 mmol/L (3.5-5.1); Sodium 138 mmol/L (137-145)
[2023-06-03 09:21] LABS: Basophils % (A) 0 %; Eosinophils % (A) 0 %; HCT 44.6 % (39.0-53.0); HGB 14.6 gm/dL (13.0-17.5); Lymphocytes # (A) 0.7 k/uL (1.0-4.8); Lymphocytes % (A) 6 %; MCH 31.4 pg (25.0-35.0); MCHC 32.7 g/dL (31.0-37.0); MCV 96.1 fL (80.0-100.0); Mean Platelet Volume 9.6; Monocytes # (A) 0.5 k/uL (0-1.0); Monocytes % (A) 4 %; Neutrophils # (A) 11.9 k/uL (1.3-7.7); Neutrophils % (A) 90 %; Platelet Count 178 k/uL (150-450); RBC 4.64 m/uL (4.30-5.90); RDW 13.8 % (11.5-15.5); WBC 13.2 k/uL (3.8-10.6)
[2023-06-03] MEDS: DOXYCYCLINE 100 MG CAP PO SCH ×2 (09:33→21:59)
[2023-06-03] MEDS: DILTIAZEM 125 MG in SODIUM CHLORIDE 0.9% 100 ML IV SCH ×2 (09:55→21:30)
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
[2023-06-03 11:54] LABS: T4, Free (Free Thyroxine) 1.17 ng/dL (0.78-2.19)
--- NOTE | 2023-06-03 12:25 | CA ---
Transthoracic Echo Report Name: Glynn Black Age: 72 Gender: M : 1950 Exam Date: 06/03/2023 08:38 Exam Location: [facility] Ht (in): 73 Wt (lb): 210 Ordering Physician: Lalit Arredondo Attending/Referring Phys: [employer] Evan Vasquez Procedure CPT: Indications: chest trauma, tachycardia Cardiac Hx: Technical Quality: Technically difficult study Contrast 1: Total Dose (mL): Contrast 2: Total Dose (mL): MEASUREMENTS (Male / Female) Normal Values 2D ECHO LV Diastolic Diameter PLAX 4.6 cm 4.2 - 5.9 / 3.9 - 5.3 cm LV Systolic Diameter PLAX 3.5 cm IVS Diastolic Thickness 1.1 cm 0.6 - 1.0 / 0.6 - 0.9 cm LVPW Diastolic Thickness 1.3 cm 0.6 - 1.0 / 0.6 - 0.9 cm LV Relative Wall Thickness 0.5 RV Internal Dim ED PLAX 3.1 cm LVOT Diameter 2.0 cm Aortic Root Diameter 3.4 cm LV Diastolic Volume MOD BP 32.8 cm??? 67 - 155 / 56 - 104 cm??? LV Systolic Volume MOD BP 14.4 cm??? 22 - 58 / 19 - 49 cm??? LV Ejection Fraction MOD BP 55.9 % >= 55 % LV Cardiac Index MOD BP 1183.3 cm???/min???m??? LV Diastolic Volume MOD 4C 30.8 cm??? LV Systolic Volume MOD 4C 13.2 cm??? LV Ejection Fraction MOD 4C 57.0 % LV Cardiac Index MOD 4C 1133.8 cm???/min???m??? LV Diastolic Length 4C 6.6 cm LV Systolic Length 4C 6.0 cm LV Diastolic Volume MOD 2C 32.4 cm??? LV Systolic Volume MOD 2C 14.6 cm??? LV Ejection Fraction MOD 2C 55.0 % LV Cardiac Index MOD 2C 1151.3 cm???/min???m??? LV Diastolic Length 2C 6.0 cm LV Systolic Length 2C 5.5 cm LA Volume 43.9 cm??? 18 - 58 / 22 - 52 cm??? DOPPLER AV Peak Velocity 126.7 cm/s AV Peak Gradient 6.4 mmHg LVOT Peak Velocity 98.4 cm/s LVOT Peak Gradient 3.9 mmHg LVOT Velocity Time Integral 14.1 cm LVOT Stroke Volume 46.1 cm??? LVOT Stroke Volume Index 21.0 ml/m??? LVOT Cardiac Index 2977.4 cm???/min???m??? AV Area Cont Eq pk 2.5 cm??? MV Peak Velocity 107.1 cm/s MV Peak Gradient 4.6 mmHg MV Mean Velocity 56.0 cm/s MV Mean Gradient 1.5 mmHg MV Velocity Time Integral 16.3 cm Mitral E Point Velocity 98.2 cm/s Mitral A Point Velocity 46.6 cm/s Mitral E to A Ratio 2.1 MV Deceleration Time 79.8 ms MV E' Velocity 8.2 cm/s Mitral E to MV E' Ratio 11.9 TR Peak Velocity 229.3 cm/s TR Peak Gradient 21.0 mmHg Right Ventricular Systolic Press 26.0 mmHg PV Peak Velocity 105.6 cm/s PV Peak Gradient 4.5 mmHg FINDINGS Left Ventricle Normal LV size. Mild concentric LVH. Left ventricular ejection fraction is estimated at 55-60 %. Right Ventricle Normal right ventricular size. RVSP=26mmHg. Right Atrium Normal right atrial size. Left Atrium Normal left atrial size. Mitral Valve Structurally normal mitral valve. No mitral regurgitation. Aortic Valve Aortic valve not well visualized. No aortic valve stenosis or regurgitation. Tricuspid Valve Tricuspid valve not well visualized. Trace TR. Pulmonic Valve Pulmonic valve not well visualized. Pericardium Normal pericardium. Aorta Normal size aortic root. CONCLUSIONS Tachycardia. Probably normal LV function. Probably echo free space seen anteriorly may be a fat pad. No significant pericardial effusion. Doppler exam is suboptimal. Previewed by: Dr. Danial Martínez MD (Electronically Signed) Final Date: 03 June 2023 12:24
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
[2023-06-03] MEDS: MAGNESIUM HYDROXIDE 2,400 MG/30 ML CUP PO PRN (15:54)
[2023-06-03] MEDS: SENNOSIDES 8.6 MG TAB PO SCH (21:59)
[2023-06-04] MEDS: methylPREDNISolone SOD SUCCI 125 MG/2 ML VIAL IV SCH ×4 (00:45→18:07)
[2023-06-04] MEDS: IPRATROPIUM-ALBUTEROL 3 ML NEB INHALATION PRN ×3 (02:01→10:13)
[2023-06-04] MEDS: HYDROcodone/APAP 5-325MG 1 EACH TAB PO SCH ×4 (02:19→22:19)
[2023-06-04 04:41] LABS: Basophils % (A) 0 %; Eosinophils # (A) 0.1 k/uL (0-0.7); Eosinophils % (A) 1 %; HCT 48.3 % (39.0-53.0); HGB 15.4 gm/dL (13.0-17.5); Lymphocytes # (A) 0.7 k/uL (1.0-4.8); Lymphocytes % (A) 5 %; MCH 31.1 pg (25.0-35.0); MCV 97.2 fL (80.0-100.0); Mean Platelet Volume 8.9; Monocytes # (A) 0.5 k/uL (0-1.0); Monocytes % (A) 3 %; Neutrophils # (A) 14.6 k/uL (1.3-7.7); Neutrophils % (A) 91 %; Platelet Count 191 k/uL (150-450); RBC 4.96 m/uL (4.30-5.90); RDW 13.8 % (11.5-15.5); WBC 15.9 k/uL (3.8-10.6)
[2023-06-04 04:53] LABS: African American GFR (CKD) 82 (>60 ml/min/1.73 sqM); Anion Gap 9 mmol/L; Blood Urea Nitrogen 36 mg/dL (9-20); Calcium 9.7 mg/dL (8.4-10.2); Carbon Dioxide 24 mmol/L (22-30); Chloride 105 mmol/L (98-107); Glucose 154 mg/dL (74-99); Non-African American GFR(CKD) 71 (>60 ml/min/1.73 sqM); Potassium 5.3 mmol/L (3.5-5.1); Sodium 138 mmol/L (137-145)
[2023-06-04] MEDS: DILTIAZEM 125 MG in SODIUM CHLORIDE 0.9% 100 ML IV SCH ×2 (06:50→18:45)
[2023-06-04] MEDS: IPRATROPIUM-ALBUTEROL 3 ML NEB INHALATION SCH ×4 (08:09→20:56)
[2023-06-04] MEDS: SYMBICORT 160-4.5 MCG INHALER INHALATION SCH (08:09)
[2023-06-04] MEDS: SENNOSIDES 8.6 MG TAB PO SCH ×2 (08:46→22:20)
[2023-06-04] MEDS: DOXYCYCLINE 100 MG CAP PO SCH (08:46)
[2023-06-04] MEDS: ENOXAPARIN 40 MG/0.4 ML SYRINGE SQ SCH (08:46)
[2023-06-04] MEDS ORDERED: METOPROLOL SUCCINATE (ER) 50 MG TAB.ER.24H PO SCH (09:30)
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
--- NOTE | 2023-06-04 11:51 | XR ---
EXAMINATION TYPE: XR chest 1V DATE OF EXAM: 06/04/2023 COMPARISON: 06/01/2020. INDICATION: Hypoxia: Congestion TECHNIQUE: Single frontal view of the chest is obtained. FINDINGS: The heart size is normal. The pulmonary vasculature is normal. The lungs are clear. IMPRESSION: 1. No acute pulmonary process.
[2023-06-04] MEDS: APIXABAN 5 MG TAB PO SCH ×2 (12:40→22:19)
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
[2023-06-04] MEDS: NICOTINE 21MG/24HR PATCH TRANSDERM SCH (18:10)
[2023-06-04] MEDS: FORMOTEROL FUMARATE 20 MCG/2 ML NEBU INHALATION SCH (20:56)
[2023-06-04] MEDS: BUDESONIDE 1 MG/2 ML NEBU INHALATION SCH (20:56)
--- NOTE | 2023-06-04 22:08 | CT ---
CT CHEST FOR PULMONARY EMBOLISM. EXAMINATION TYPE: CT chest angio for PE DATE OF EXAM: 06/04/2023 INDICATION: Elevated D-Dimer, Resp Distress, Poss PE CT DLP: 518.9 mGycm, Automated exposure control for dose reduction was used. CONTRAST: Patient injected with 100 ml mL of Isovue 370. COMPARISON: None TECHNIQUE: CT of the chest is performed on a spiral scan at 2 mm thick sections. Study is performed with intravenous contrast timed for evaluation for pulmonary embolism. This will limit additional po rtions of the evaluation. 3-D MIP images reconstructed by the technologist are reviewed on the compu ter in the coronal and sagittal planes. FINDINGS: No persistent filling defects are evident to suggest an acute pulmonary embolism. No mediastinal or hilar adenopathy enlarged by CT criteria is evident. The ascending aorta diameter at the level of the main pulmonary artery is 3.7 cm. The main pulmonary artery diameter at the bifur cation is 2.9 cm. Lung windows are clear. Limited CT section through the upper abdomen are unremarkable. IMPRESSION: 1. No acute pulmonary embolism
[2023-06-04] MEDS ORDERED: ALPRAZolam 0.25 MG TAB PO STA (22:30)
[2023-06-05] MEDS: IPRATROPIUM-ALBUTEROL 3 ML NEB INHALATION PRN ×3 (00:12→23:48)
[2023-06-05] MEDS: methylPREDNISolone SOD SUCCI 125 MG/2 ML VIAL IV SCH ×5 (01:46→23:05)
[2023-06-05] MEDS: HYDROcodone/APAP 5-325MG 1 EACH TAB PO SCH ×4 (03:13→20:01)
[2023-06-05 06:06] LABS: African American GFR (CKD) >90 (>60 ml/min/1.73 sqM); Anion Gap 7 mmol/L; Blood Urea Nitrogen 39 mg/dL (9-20); Calcium 9.5 mg/dL (8.4-10.2); Carbon Dioxide 23 mmol/L (22-30); Chloride 105 mmol/L (98-107); Glucose 146 mg/dL (74-99); Non-African American GFR(CKD) 84 (>60 ml/min/1.73 sqM); Potassium 5.1 mmol/L (3.5-5.1); Sodium 135 mmol/L (137-145)
[2023-06-05 06:13] LABS: Basophils % (A) 0 %; Eosinophils % (A) 0 %; HCT 46.2 % (39.0-53.0); HGB 15.1 gm/dL (13.0-17.5); Lymphocytes # (A) 0.6 k/uL (1.0-4.8); Lymphocytes % (A) 5 %; MCH 31.8 pg (25.0-35.0); MCHC 32.5 g/dL (31.0-37.0); MCV 97.8 fL (80.0-100.0); Mean Platelet Volume 9.9; Monocytes # (A) 0.5 k/uL (0-1.0); Monocytes % (A) 4 %; Neutrophils # (A) 10.8 k/uL (1.3-7.7); Neutrophils % (A) 90 %; Platelet Count 147 k/uL (150-450); RBC 4.73 m/uL (4.30-5.90); RDW 14.1 % (11.5-15.5)
[2023-06-05] MEDS ORDERED: ALPRAZolam 0.25 MG TAB PO STA (06:35)
[2023-06-05] MEDS ORDERED: METOPROLOL SUCCINATE (ER) 50 MG TAB.ER.24H PO SCH (09:00)
[2023-06-05] MEDS: FORMOTEROL FUMARATE 20 MCG/2 ML NEBU INHALATION SCH ×2 (09:05→20:21)
[2023-06-05] MEDS: BUDESONIDE 1 MG/2 ML NEBU INHALATION SCH ×2 (09:05→20:21)
[2023-06-05] MEDS: IPRATROPIUM-ALBUTEROL 3 ML NEB INHALATION SCH ×4 (09:05→20:21)
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
[2023-06-05] MEDS: SENNOSIDES 8.6 MG TAB PO SCH ×2 (09:41→20:00)
[2023-06-05] MEDS: APIXABAN 5 MG TAB PO SCH ×2 (09:41→20:00)
[2023-06-05] MEDS: METOPROLOL SUCCINATE (ER) 100 MG TAB.ER.24H PO SCH (09:41)
[2023-06-05] MEDS: NICOTINE 21MG/24HR PATCH TRANSDERM SCH (09:42)
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
[2023-06-05] MEDS: MAGNESIUM HYDROXIDE 2,400 MG/30 ML CUP PO PRN (20:00)
[2023-06-06] MEDS: HYDROcodone/APAP 5-325MG 1 EACH TAB PO SCH ×4 (03:53→22:44)
[2023-06-06 05:02] LABS: African American GFR (CKD) 79 (>60 ml/min/1.73 sqM); Anion Gap 5 mmol/L; Blood Urea Nitrogen 49 mg/dL (9-20); Calcium 9.3 mg/dL (8.4-10.2); Carbon Dioxide 31 mmol/L (22-30); Chloride 101 mmol/L (98-107); Glucose 123 mg/dL (74-99); Non-African American GFR(CKD) 68 (>60 ml/min/1.73 sqM); Potassium 5.3 mmol/L (3.5-5.1); Sodium 137 mmol/L (137-145)
[2023-06-06 05:13] LABS: Basophils % (A) 0 %; Eosinophils # (A) 0.1 k/uL (0-0.7); Eosinophils % (A) 1 %; HCT 42.8 % (39.0-53.0); Lymphocytes # (A) 0.6 k/uL (1.0-4.8); Lymphocytes % (A) 6 %; MCH 31.6 pg (25.0-35.0); MCHC 32.6 g/dL (31.0-37.0); MCV 97.1 fL (80.0-100.0); Mean Platelet Volume 9.5; Monocytes # (A) 0.6 k/uL (0-1.0); Monocytes % (A) 6 %; Neutrophils # (A) 8.9 k/uL (1.3-7.7); Neutrophils % (A) 87 %; Platelet Count 171 k/uL (150-450); RBC 4.41 m/uL (4.30-5.90); RDW 13.9 % (11.5-15.5); WBC 10.3 k/uL (3.8-10.6)
[2023-06-06] MEDS: IPRATROPIUM-ALBUTEROL 3 ML NEB INHALATION PRN (06:06)
[2023-06-06] MEDS: methylPREDNISolone SOD SUCCI 125 MG/2 ML VIAL IV SCH ×4 (06:38→23:20)
[2023-06-06] MEDS: guaiFENesin SYRUP 100MG/5ML 200 MG/10 ML CUP PO PRN ×3 (06:38→18:58)
[2023-06-06] MEDS: NICOTINE 21MG/24HR PATCH TRANSDERM SCH (08:12)
[2023-06-06] MEDS: METOPROLOL SUCCINATE (ER) 100 MG TAB.ER.24H PO SCH (08:12)
[2023-06-06] MEDS: SENNOSIDES 8.6 MG TAB PO SCH ×2 (08:12→22:43)
[2023-06-06] MEDS: APIXABAN 5 MG TAB PO SCH ×2 (08:12→20:13)
[2023-06-06] MEDS: BUDESONIDE 1 MG/2 ML NEBU INHALATION SCH ×2 (09:20→20:43)
[2023-06-06] MEDS: IPRATROPIUM-ALBUTEROL 3 ML NEB INHALATION SCH ×4 (09:20→20:44)
[2023-06-06] MEDS: FORMOTEROL FUMARATE 20 MCG/2 ML NEBU INHALATION SCH ×2 (09:20→20:43)
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
[2023-06-06 14:27] VITALS: BMI 27.6
[2023-06-06] MEDS ORDERED: VALSARTAN 160 MG TAB PO STA (22:26)
[2023-06-07] MEDS: IPRATROPIUM-ALBUTEROL 3 ML NEB INHALATION PRN ×2 (00:39→03:33)
[2023-06-07] MEDS: HYDROcodone/APAP 5-325MG 1 EACH TAB PO SCH ×4 (02:40→21:42)
[2023-06-07 04:36] LABS: HCT 44.7 % (39.0-53.0); HGB 14.6 gm/dL (13.0-17.5); MCH 31.4 pg (25.0-35.0); MCHC 32.6 g/dL (31.0-37.0); MCV 96.3 fL (80.0-100.0); Mean Platelet Volume 8.7; Platelet Count 178 k/uL (150-450); RBC 4.64 m/uL (4.30-5.90); RDW 13.7 % (11.5-15.5); WBC 8.7 k/uL (3.8-10.6)
[2023-06-07 05:09] LABS: African American GFR (CKD) >90 (>60 ml/min/1.73 sqM); Anion Gap 5 mmol/L; Blood Urea Nitrogen 47 mg/dL (9-20); Calcium 8.9 mg/dL (8.4-10.2); Carbon Dioxide 32 mmol/L (22-30); Chloride 99 mmol/L (98-107); Glucose 144 mg/dL (74-99); Non-African American GFR(CKD) 83 (>60 ml/min/1.73 sqM); Potassium 5.3 mmol/L (3.5-5.1); Sodium 136 mmol/L (137-145)
[2023-06-07] MEDS: methylPREDNISolone SOD SUCCI 125 MG/2 ML VIAL IV SCH ×4 (05:24→23:51)
[2023-06-07] MEDS: IPRATROPIUM-ALBUTEROL 3 ML NEB INHALATION SCH ×4 (08:29→21:11)
[2023-06-07] MEDS: FORMOTEROL FUMARATE 20 MCG/2 ML NEBU INHALATION SCH ×2 (08:29→21:11)
[2023-06-07] MEDS: BUDESONIDE 1 MG/2 ML NEBU INHALATION SCH ×2 (08:29→21:11)
[2023-06-07] MEDS: METOPROLOL SUCCINATE (ER) 100 MG TAB.ER.24H PO SCH (08:56)
[2023-06-07] MEDS: guaiFENesin SYRUP 100MG/5ML 200 MG/10 ML CUP PO PRN ×2 (08:57→17:54)
[2023-06-07] MEDS: SENNOSIDES 8.6 MG TAB PO SCH ×2 (08:57→21:43)
[2023-06-07] MEDS: APIXABAN 5 MG TAB PO SCH ×2 (08:57→21:42)
[2023-06-07] MEDS: NICOTINE 21MG/24HR PATCH TRANSDERM SCH (09:53)
[2023-06-07] MEDS ORDERED: FUROSEMIDE 10 MG/ML 2 ML VIAL IV ONE (10:07)
[2023-06-07] MEDS: BENZONATATE 100 MG CAP PO SCH ×3 (10:16→21:41)
[2023-06-07] MEDS: VALSARTAN 160 MG TAB PO SCH (10:23)
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
[2023-06-07] MEDS ORDERED: BENZONATATE 100 MG CAP PO SCH (16:00)
[2023-06-08] MEDS: IPRATROPIUM-ALBUTEROL 3 ML NEB INHALATION PRN ×3 (00:08→18:07)
[2023-06-08] MEDS: HYDROcodone/APAP 5-325MG 1 EACH TAB PO SCH ×4 (03:17→20:47)
[2023-06-08 05:01] LABS: HCT 46.1 % (39.0-53.0); HGB 15.1 gm/dL (13.0-17.5); MCH 31.4 pg (25.0-35.0); MCHC 32.6 g/dL (31.0-37.0); MCV 96.2 fL (80.0-100.0); Mean Platelet Volume 8.5; Platelet Count 173 k/uL (150-450); RBC 4.79 m/uL (4.30-5.90); RDW 13.6 % (11.5-15.5); WBC 8.9 k/uL (3.8-10.6)
[2023-06-08 05:20] LABS: African American GFR (CKD) 82 (>60 ml/min/1.73 sqM); Anion Gap 7 mmol/L; Blood Urea Nitrogen 50 mg/dL (9-20); Carbon Dioxide 33 mmol/L (22-30); Chloride 98 mmol/L (98-107); Glucose 164 mg/dL (74-99); Non-African American GFR(CKD) 71 (>60 ml/min/1.73 sqM); Sodium 138 mmol/L (137-145)
[2023-06-08] MEDS: methylPREDNISolone SOD SUCCI 125 MG/2 ML VIAL IV SCH ×3 (05:27→17:26)
[2023-06-08] MEDS: IPRATROPIUM-ALBUTEROL 3 ML NEB INHALATION SCH ×4 (08:11→21:19)
[2023-06-08] MEDS: FORMOTEROL FUMARATE 20 MCG/2 ML NEBU INHALATION SCH ×2 (08:12→21:20)
[2023-06-08] MEDS: BUDESONIDE 1 MG/2 ML NEBU INHALATION SCH ×2 (08:12→21:20)
[2023-06-08] MEDS: NICOTINE 21MG/24HR PATCH TRANSDERM SCH (08:23)
[2023-06-08] MEDS: METOPROLOL SUCCINATE (ER) 100 MG TAB.ER.24H PO SCH (09:47)
[2023-06-08] MEDS: guaiFENesin SYRUP 100MG/5ML 200 MG/10 ML CUP PO PRN ×2 (09:47→17:26)
[2023-06-08] MEDS: FUROSEMIDE 40 MG TAB PO SCH (09:47)
[2023-06-08] MEDS: BENZONATATE 100 MG CAP PO SCH ×3 (09:47→20:47)
[2023-06-08] MEDS: SENNOSIDES 8.6 MG TAB PO SCH ×2 (09:47→20:50)
[2023-06-08] MEDS: APIXABAN 5 MG TAB PO SCH ×2 (09:47→20:47)
[2023-06-08] MEDS: VALSARTAN 160 MG TAB PO SCH (09:47)
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
[2023-06-09] MEDS: methylPREDNISolone SOD SUCCI 125 MG/2 ML VIAL IV SCH ×4 (00:15→17:10)
[2023-06-09] MEDS: IPRATROPIUM-ALBUTEROL 3 ML NEB INHALATION PRN ×2 (00:26→04:33)
[2023-06-09] MEDS: HYDROcodone/APAP 5-325MG 1 EACH TAB PO SCH ×5 (03:04→22:26)
--- NOTE | 2023-06-09 07:43 | P.PN ---
Subjective Progress Note Date: 06/09/23 Principal diagnosis: Paroxysmal atrial fibrillation The patient is a 72-year-old gentleman with COPD who was admitted to the hospital with chest trauma we consulted to see the patient because of paroxysmal atrial fibrillation. An echo was performed and showed preserved LV systolic function 06/09/2023 The patient was seen and evaluated this morning. He is a stable and has been maintaining normal sinus mechanism with sinus bradycardia. Currently he is on beta silver. He is also on oral anticoagulation. From a cardiovascular standpoint of view, the patient can be transferred out of the ICU The examination is remarkable for diminished breathing sounds bilaterally and distant heart sounds with regular rhythm Assessment History of rib fracture Paroxysmal atrial fibrillation COPD Multiple comorbid conditions Plan Continue the current medical regimen Continue the current dose of beta silver and oral anticoagulation The patient can be transferred out of the ICU Objective - Vital Signs Vital signs: Vital Signs Temp 96.8 F L 06/09/23 04:00 Pulse 61 06/09/23 07:00 Resp 13 06/09/23 07:00 BP 137/82 06/09/23 07:00 Pulse Ox 98 06/09/23 07:00 FiO2 35 06/09/23 04:34 Intake & Output 06/08/23 06/09/23 06/09/23 18:59 06:59 18:59 Intake Total 800 0 Output Total 1500 650 0 Balance -700 -650 0 Weight 92 kg Intake: IV 0 0.9NS 0 Oral 800 Lipid 0 0.9NS 0 Output: Urine 1500 650 0 Other: Voiding Method Urinal Urinal # Voids 1 1 0 - Labs CBC & Chem 7: 06/08/23 04:28 06/08/23 04:28
[2023-06-09] MEDS: FORMOTEROL FUMARATE 20 MCG/2 ML NEBU INHALATION SCH ×2 (08:16→20:47)
[2023-06-09] MEDS: BUDESONIDE 1 MG/2 ML NEBU INHALATION SCH ×2 (08:16→20:47)
[2023-06-09] MEDS: IPRATROPIUM-ALBUTEROL 3 ML NEB INHALATION SCH ×4 (08:16→20:47)
[2023-06-09] MEDS: NICOTINE 21MG/24HR PATCH TRANSDERM SCH (08:29)
[2023-06-09] MEDS: VALSARTAN 160 MG TAB PO SCH (08:32)
[2023-06-09] MEDS: SENNOSIDES 8.6 MG TAB PO SCH ×2 (08:32→21:32)
[2023-06-09] MEDS: BENZONATATE 100 MG CAP PO SCH ×3 (08:36→22:26)
[2023-06-09] MEDS: METOPROLOL SUCCINATE (ER) 100 MG TAB.ER.24H PO SCH (08:36)
[2023-06-09] MEDS: APIXABAN 5 MG TAB PO SCH ×2 (08:36→21:33)
[2023-06-09] MEDS: FUROSEMIDE 40 MG TAB PO SCH (08:36)
[2023-06-09 09:51] LABS: Basophils % (A) 0 %; Eosinophils % (A) 0 %; HCT 52.9 % (39.0-53.0); Lymphocytes # (A) 0.5 k/uL (1.0-4.8); Lymphocytes % (A) 5 %; MCH 30.9 pg (25.0-35.0); MCHC 32.1 g/dL (31.0-37.0); Mean Platelet Volume 8.8; Monocytes # (A) 0.6 k/uL (0-1.0); Monocytes % (A) 5 %; Neutrophils # (A) 9.2 k/uL (1.3-7.7); Neutrophils % (A) 89 %; Platelet Count 195 k/uL (150-450); RBC 5.51 m/uL (4.30-5.90); RDW 13.5 % (11.5-15.5); WBC 10.3 k/uL (3.8-10.6)
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
[2023-06-09 10:19] LABS: African American GFR (CKD) 70 (>60 ml/min/1.73 sqM); Anion Gap 9 mmol/L; Blood Urea Nitrogen 54 mg/dL (9-20); Calcium 9.2 mg/dL (8.4-10.2); Carbon Dioxide 36 mmol/L (22-30); Chloride 95 mmol/L (98-107); Glucose 172 mg/dL (74-99); Non-African American GFR(CKD) 61 (>60 ml/min/1.73 sqM); Sodium 140 mmol/L (137-145)
[2023-06-09] MEDS: ALPRAZolam 0.5 MG TAB PO PRN (10:50)
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
[2023-06-10] MEDS: methylPREDNISolone SOD SUCCI 125 MG/2 ML VIAL IV SCH ×4 (00:30→17:13)
[2023-06-10] MEDS: IPRATROPIUM-ALBUTEROL 3 ML NEB INHALATION PRN (04:13)
[2023-06-10] MEDS: HYDROcodone/APAP 5-325MG 1 EACH TAB PO SCH ×4 (04:18→18:41)
[2023-06-10] MEDS: guaiFENesin SYRUP 100MG/5ML 200 MG/10 ML CUP PO PRN (06:13)
[2023-06-10] MEDS: BUDESONIDE 1 MG/2 ML NEBU INHALATION SCH ×2 (07:33→21:00)
[2023-06-10] MEDS: FORMOTEROL FUMARATE 20 MCG/2 ML NEBU INHALATION SCH ×2 (07:33→21:00)
[2023-06-10] MEDS: IPRATROPIUM-ALBUTEROL 3 ML NEB INHALATION SCH ×4 (07:33→20:59)
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
[2023-06-10] MEDS: APIXABAN 5 MG TAB PO SCH ×2 (08:45→21:27)
[2023-06-10] MEDS: BENZONATATE 100 MG CAP PO SCH ×3 (08:45→21:45)
[2023-06-10] MEDS: METOPROLOL SUCCINATE (ER) 100 MG TAB.ER.24H PO SCH (08:45)
[2023-06-10] MEDS: NICOTINE 21MG/24HR PATCH TRANSDERM SCH (08:45)
[2023-06-10] MEDS: VALSARTAN 160 MG TAB PO SCH (08:45)
[2023-06-10] MEDS: SENNOSIDES 8.6 MG TAB PO SCH ×2 (08:45→21:27)
--- NOTE | 2023-06-10 09:07 | XR ---
EXAMINATION TYPE: XR chest 1V portable DATE OF EXAM: 06/10/2023 Comparison: 06/04/2023 Clinical History: 72-year-old male COPD Findings: Heart is normal size. Hyperinflation. Density along the right heart margin seems to correspond to a p rominent epicardial fat pad on CT. No consolidation or pleural effusion. Impression: COPD. No acute process seen.
[2023-06-10] MEDS: ALPRAZolam 0.5 MG TAB PO PRN ×2 (10:36→21:27)
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
[2023-06-10 12:30] LABS: HGB 16.3 gm/dL (13.0-17.5); MCV 94.1 fL (80.0-100.0); Platelet Count 157 k/uL (150-450); RDW 13.4 % (11.5-15.5); WBC 11.6 k/uL (3.8-10.6)
[2023-06-10 12:36] LABS: African American GFR (CKD) >90 (>60 ml/min/1.73 sqM); Anion Gap 11 mmol/L; Blood Urea Nitrogen 58 mg/dL (9-20); Carbon Dioxide 27 mmol/L (22-30); Chloride 99 mmol/L (98-107); Glucose 150 mg/dL (74-99); Non-African American GFR(CKD) 84 (>60 ml/min/1.73 sqM); Potassium 4.9 mmol/L (3.5-5.1); Sodium 137 mmol/L (137-145)
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
[2023-06-11] MEDS: methylPREDNISolone SOD SUCCI 125 MG/2 ML VIAL IV SCH ×5 (00:24→23:52)
[2023-06-11 04:54] LABS: Basophils % (A) 0 %; Eosinophils # (A) 0.1 k/uL (0-0.7); Eosinophils % (A) 1 %; HCT 47.7 % (39.0-53.0); HGB 15.4 gm/dL (13.0-17.5); Lymphocytes # (A) 0.6 k/uL (1.0-4.8); Lymphocytes % (A) 5 %; MCHC 32.4 g/dL (31.0-37.0); MCV 95.9 fL (80.0-100.0); Mean Platelet Volume 9.4; Monocytes # (A) 0.4 k/uL (0-1.0); Monocytes % (A) 4 %; Neutrophils % (A) 91 %; Platelet Count 153 k/uL (150-450); RBC 4.98 m/uL (4.30-5.90); RDW 13.2 % (11.5-15.5); WBC 12.1 k/uL (3.8-10.6)
[2023-06-11 05:20] LABS: African American GFR (CKD) 78 (>60 ml/min/1.73 sqM); Anion Gap 7 mmol/L; Blood Urea Nitrogen 62 mg/dL (9-20); Calcium 8.6 mg/dL (8.4-10.2); Carbon Dioxide 29 mmol/L (22-30); Chloride 99 mmol/L (98-107); Glucose 150 mg/dL (74-99); Non-African American GFR(CKD) 67 (>60 ml/min/1.73 sqM); Potassium 5.1 mmol/L (3.5-5.1); Sodium 135 mmol/L (137-145)
[2023-06-11] MEDS: HYDROcodone/APAP 5-325MG 1 EACH TAB PO SCH ×5 (07:14→21:19)
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
[2023-06-11] MEDS: BUDESONIDE 1 MG/2 ML NEBU INHALATION SCH ×2 (09:14→20:43)
[2023-06-11] MEDS: FORMOTEROL FUMARATE 20 MCG/2 ML NEBU INHALATION SCH ×2 (09:14→20:43)
[2023-06-11] MEDS: IPRATROPIUM-ALBUTEROL 3 ML NEB INHALATION SCH ×4 (09:14→20:43)
[2023-06-11] MEDS: VALSARTAN 160 MG TAB PO SCH (09:37)
[2023-06-11] MEDS: SENNOSIDES 8.6 MG TAB PO SCH ×2 (09:37→21:19)
[2023-06-11] MEDS: BENZONATATE 100 MG CAP PO SCH ×3 (09:37→21:19)
[2023-06-11] MEDS: NICOTINE 21MG/24HR PATCH TRANSDERM SCH ×2 (09:37→09:45)
[2023-06-11] MEDS: APIXABAN 5 MG TAB PO SCH ×2 (09:38→21:19)
[2023-06-11] MEDS: METOPROLOL SUCCINATE (ER) 100 MG TAB.ER.24H PO SCH (09:41)
[2023-06-11] MEDS: ALPRAZolam 0.5 MG TAB PO PRN ×3 (09:41→23:55)
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
[2023-06-12] MEDS: HYDROcodone/APAP 5-325MG 1 EACH TAB PO SCH ×4 (02:57→20:31)
[2023-06-12] MEDS: methylPREDNISolone SOD SUCCI 125 MG/2 ML VIAL IV SCH ×3 (06:12→16:38)
[2023-06-12] MEDS: BUDESONIDE 1 MG/2 ML NEBU INHALATION SCH ×2 (07:39→19:27)
[2023-06-12] MEDS: IPRATROPIUM-ALBUTEROL 3 ML NEB INHALATION SCH ×4 (07:40→19:27)
[2023-06-12] MEDS: FORMOTEROL FUMARATE 20 MCG/2 ML NEBU INHALATION SCH ×2 (07:55→19:27)
[2023-06-12] MEDS: BENZONATATE 100 MG CAP PO SCH ×3 (08:20→22:28)
[2023-06-12] MEDS: VALSARTAN 160 MG TAB PO SCH (08:20)
[2023-06-12] MEDS: METOPROLOL SUCCINATE (ER) 100 MG TAB.ER.24H PO SCH (08:20)
[2023-06-12] MEDS: APIXABAN 5 MG TAB PO SCH ×2 (08:20→20:20)
[2023-06-12] MEDS: NICOTINE 21MG/24HR PATCH TRANSDERM SCH (08:20)
[2023-06-12] MEDS: SENNOSIDES 8.6 MG TAB PO SCH ×2 (08:20→20:32)
[2023-06-12 08:57] LABS: Basophils % (A) 0 %; Eosinophils % (A) 0 %; HCT 46.8 % (39.0-53.0); HGB 15.2 gm/dL (13.0-17.5); Lymphocytes # (A) 0.5 k/uL (1.0-4.8); Lymphocytes % (A) 3 %; MCH 31.2 pg (25.0-35.0); MCHC 32.6 g/dL (31.0-37.0); MCV 95.7 fL (80.0-100.0); Mean Platelet Volume 8.7; Monocytes # (A) 0.5 k/uL (0-1.0); Monocytes % (A) 3 %; Neutrophils # (A) 15.3 k/uL (1.3-7.7); Neutrophils % (A) 93 %; Platelet Count 155 k/uL (150-450); RBC 4.89 m/uL (4.30-5.90); RDW 13.2 % (11.5-15.5); WBC 16.5 k/uL (3.8-10.6)
[2023-06-12 09:07] LABS: Glucose 158 mg/dL (74-99); Sodium 134 mmol/L (137-145)
[2023-06-12 09:23] LABS: African American GFR (CKD) 69 (>60 ml/min/1.73 sqM); Anion Gap 7 mmol/L; Blood Urea Nitrogen 61 mg/dL (9-20); Calcium 8.4 mg/dL (8.4-10.2); Carbon Dioxide 30 mmol/L (22-30); Chloride 97 mmol/L (98-107); Non-African American GFR(CKD) 60 (>60 ml/min/1.73 sqM); Potassium 5.2 mmol/L (3.5-5.1)
[2023-06-12] MEDS: FUROSEMIDE 10 MG/ML 2 ML VIAL IV SCH ×2 (10:31→20:30)
--- NOTE | 2023-06-12 11:19 | XR ---
EXAMINATION TYPE: XR chest 1V DATE OF EXAM: 06/12/2023 COMPARISON: 06/10/2023 HISTORY: 72 year-old male shortness of breath, dyspnea TECHNIQUE: Single frontal view of the chest is obtained. FINDINGS: Heart upper limits of normal in size. Hyperinflation. Strandy atelectasis in the lower lungs. No cons olidation or pleural effusion. Some type of linear, vertically oriented external artifact projects al balbir the right paramedian chest. IMPRESSION: Hyperinflation may reflect depth of inspiration or underlying emphysema. Otherwise, no a cute process seen.
--- NOTE | 2023-06-12 11:31 | P.PN ---
Subjective Progress Note Date: 06/12/23 Paroxysmal atrial fibrillation The patient is a 72-year-old gentleman with COPD who was admitted to the [facility] with chest trauma we consulted to see the patient because of paroxysmal atrial fibrillation. An echo was performed and showed preserved LV systolic function 06/09/2023 The patient was seen and evaluated this morning. He is a stable and has been maintaining normal sinus mechanism with sinus bradycardia. Currently he is on beta silver. He is also on oral anticoagulation. From a cardiovascular standpoint of view, the patient can be transferred out of the ICU The examination is remarkable for diminished breathing sounds bilaterally and distant heart sounds with regular rhythm 06/10/2023 The patient was seen and evaluated this morning. He is stable from a cardiovascular standpoint of view and he has been maintaining normal sinus mechanism and sinus bradycardia. He is on oral anticoagulation. From the cardiac catheter standpoint of view, we will continue the current medical regimen and. The examination is remarkable for mild bilateral expiratory wheezing 06/11/2023 The patient was seen and evaluated this morning. He is stable from the cardiovascular standpoint of view, and has been maintaining normal sinus mechanism. He is on oral anticoagulation. He is in sinus bradycardia with heart rate in the 50s and 60s but is asymptomatic from that standpoint of view. The chest x-ray was reviewed and showed COPD and no acute process noted Examination is remarkable for mild bilateral expiratory wheezing appeared to be improved compared to before 06/12 Patient has been transferred out of the ICU and seen today on the [facility] floor. We are following for paroxysmal atrial fibrillation. He is in a sinus rhythm running in the 60s, blood pressure 117/75. He has been started on eliquis and also Toprol-XL 100 mg daily. He denies having any palpitations and no chest pain. He is noted to have lower extremity edema and currently on Lasix 20 mg IV every 12 hours. Repeat blood work reveals sodium 134, potassium 5.2, BUN 61 creatinine 1.22. Examination GEN: 72-year-old male, on BiPAP Lungs: Bilateral expiratory wheeze Heart: Regular S1-S2, no murmur +1 bilateral lower extremity edema Assessment History of rib fracture Paroxysmal atrial fibrillation COPD Multiple comorbid conditions Plan Continue the current medical regimen Continue the current dose of beta silver and oral anticoagulation Cardiology will sign off this case and follow on an as-needed basis. Please reconsult for any new concerns. Patient may follow-up in the office in one to 2 weeks. Nurse practitioner note has been reviewed, I agree with the documented findings and plan of care. Patient was seen and examined. Objective - Vital Signs Vital signs: Vital Signs Temp 97.5 F L 06/12/23 08:23 Pulse 67 06/12/23 08:01 Resp 17 06/12/23 06:51 BP 117/75 06/12/23 06:51 Pulse Ox 97 06/12/23 06:51 FiO2 35 06/12/23 07:40 Intake & Output 06/11/23 06/12/23 06/12/23 18:59 06:59 18:59 Intake Total 237 Output Total 300 300 Balance -63 -300 Intake: Oral 237 Output: Urine 300 300 Other: Voiding Method Urinal Urinal # Voids 1 - Labs CBC & Chem 7: 06/12/23 08:18 06/12/23 08:18 Labs: Abnormal Lab Results - Last 24 Hours (Table) 06/12/23 06/12/23 Range/Units 08:18 08:18 WBC 16.5 H (3.8-10.6) k/uL Neutrophils # 15.3 H (1.3-7.7) k/uL Lymphocytes # 0.5 L (1.0-4.8) k/uL Sodium 134 L (137-145) mmol/L Potassium 5.2 H (3.5-5.1) mmol/L Chloride 97 L (98-107) mmol/L BUN 61 H (9-20) mg/dL Glucose 158 H (74-99) mg/dL
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
[2023-06-12] MEDS: ALPRAZolam 0.5 MG TAB PO PRN ×2 (16:42→22:28)
[2023-06-13] MEDS: methylPREDNISolone SOD SUCCI 125 MG/2 ML VIAL IV SCH ×5 (00:16→23:48)
[2023-06-13] MEDS: HYDROcodone/APAP 5-325MG 1 EACH TAB PO SCH ×4 (04:09→20:38)
[2023-06-13] MEDS: SENNOSIDES 8.6 MG TAB PO SCH ×2 (07:58→20:39)
[2023-06-13] MEDS: VALSARTAN 160 MG TAB PO SCH (07:58)
[2023-06-13] MEDS: BENZONATATE 100 MG CAP PO SCH ×3 (07:58→20:39)
[2023-06-13] MEDS: APIXABAN 5 MG TAB PO SCH ×2 (07:59→20:38)
[2023-06-13] MEDS: NICOTINE 21MG/24HR PATCH TRANSDERM SCH (07:59)
[2023-06-13] MEDS: FUROSEMIDE 10 MG/ML 2 ML VIAL IV SCH ×2 (07:59→20:38)
[2023-06-13] MEDS: METOPROLOL SUCCINATE (ER) 100 MG TAB.ER.24H PO SCH (07:59)
[2023-06-13] MEDS: FORMOTEROL FUMARATE 20 MCG/2 ML NEBU INHALATION SCH ×2 (08:33→20:08)
[2023-06-13] MEDS: IPRATROPIUM-ALBUTEROL 3 ML NEB INHALATION SCH ×4 (08:33→20:08)
[2023-06-13] MEDS: BUDESONIDE 1 MG/2 ML NEBU INHALATION SCH ×2 (08:33→20:08)
[2023-06-13 09:28] LABS: Basophils % (A) 0 %; Eosinophils # (A) 0.1 k/uL (0-0.7); Eosinophils % (A) 0 %; HGB 16.5 gm/dL (13.0-17.5); Lymphocytes # (A) 0.5 k/uL (1.0-4.8); Lymphocytes % (A) 3 %; MCH 32.1 pg (25.0-35.0); MCHC 33.8 g/dL (31.0-37.0); Mean Platelet Volume 9.2; Monocytes # (A) 0.4 k/uL (0-1.0); Monocytes % (A) 3 %; Neutrophils # (A) 14.6 k/uL (1.3-7.7); Neutrophils % (A) 94 %; Platelet Count 164 k/uL (150-450); RBC 5.16 m/uL (4.30-5.90); RDW 13.2 % (11.5-15.5); WBC 15.6 k/uL (3.8-10.6)
[2023-06-13 09:38] LABS: African American GFR (CKD) 64 (>60 ml/min/1.73 sqM); Anion Gap 5 mmol/L; Blood Urea Nitrogen 68 mg/dL (9-20); Calcium 8.7 mg/dL (8.4-10.2); Carbon Dioxide 36 mmol/L (22-30); Chloride 94 mmol/L (98-107); Glucose 189 mg/dL (74-99); Non-African American GFR(CKD) 55 (>60 ml/min/1.73 sqM); Potassium 5.2 mmol/L (3.5-5.1); Sodium 135 mmol/L (137-145)
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
[2023-06-13] MEDS: NYSTATIN 100,000 UNIT/ML SUSP 500,000 UNIT/5 ML CUP PO SCH ×3 (13:58→20:39)
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
[2023-06-13] MEDS: ALPRAZolam 0.5 MG TAB PO PRN ×2 (17:50→23:21)
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
[2023-06-13] MEDS: IPRATROPIUM-ALBUTEROL 3 ML NEB INHALATION PRN (23:18)
[2023-06-14] MEDS: IPRATROPIUM-ALBUTEROL 3 ML NEB INHALATION PRN (04:02)
[2023-06-14] MEDS: HYDROcodone/APAP 5-325MG 1 EACH TAB PO SCH ×4 (04:10→22:02)
[2023-06-14] MEDS: methylPREDNISolone SOD SUCCI 125 MG/2 ML VIAL IV SCH ×3 (06:19→17:09)
[2023-06-14] MEDS: FORMOTEROL FUMARATE 20 MCG/2 ML NEBU INHALATION SCH ×2 (08:07→21:04)
[2023-06-14] MEDS: IPRATROPIUM-ALBUTEROL 3 ML NEB INHALATION SCH ×4 (08:07→21:04)
[2023-06-14] MEDS: BUDESONIDE 1 MG/2 ML NEBU INHALATION SCH ×2 (08:07→21:04)
[2023-06-14 08:17] LABS: Basophils % (A) 0 %; Eosinophils % (A) 0 %; HGB 14.7 gm/dL (13.0-17.5); Lymphocytes # (A) 0.5 k/uL (1.0-4.8); Lymphocytes % (A) 4 %; MCH 31.4 pg (25.0-35.0); MCHC 32.7 g/dL (31.0-37.0); MCV 95.9 fL (80.0-100.0); Mean Platelet Volume 9.4; Monocytes # (A) 0.4 k/uL (0-1.0); Monocytes % (A) 3 %; Neutrophils # (A) 12.1 k/uL (1.3-7.7); Neutrophils % (A) 93 %; Platelet Count 145 k/uL (150-450); RDW 13.2 % (11.5-15.5); WBC 13.1 k/uL (3.8-10.6)
[2023-06-14 08:26] LABS: African American GFR (CKD) 66 (>60 ml/min/1.73 sqM); Anion Gap 7 mmol/L; Blood Urea Nitrogen 66 mg/dL (9-20); Calcium 8.1 mg/dL (8.4-10.2); Carbon Dioxide 30 mmol/L (22-30); Chloride 96 mmol/L (98-107); Glucose 167 mg/dL (74-99); Non-African American GFR(CKD) 57 (>60 ml/min/1.73 sqM); Potassium 4.7 mmol/L (3.5-5.1); Sodium 133 mmol/L (137-145)
[2023-06-14] MEDS: ALPRAZolam 0.5 MG TAB PO PRN (09:02)
[2023-06-14] MEDS: BENZONATATE 100 MG CAP PO SCH ×3 (09:02→22:03)
[2023-06-14] MEDS: FUROSEMIDE 10 MG/ML 2 ML VIAL IV SCH (09:02)
[2023-06-14] MEDS: VALSARTAN 160 MG TAB PO SCH (09:02)
[2023-06-14] MEDS: METOPROLOL SUCCINATE (ER) 100 MG TAB.ER.24H PO SCH (09:02)
[2023-06-14] MEDS: SENNOSIDES 8.6 MG TAB PO SCH ×3 (09:02→22:03)
[2023-06-14] MEDS: APIXABAN 5 MG TAB PO SCH ×2 (09:02→22:02)
[2023-06-14] MEDS: NICOTINE 21MG/24HR PATCH TRANSDERM SCH (09:04)
[2023-06-14] MEDS: NYSTATIN 100,000 UNIT/ML SUSP 500,000 UNIT/5 ML CUP PO SCH ×4 (09:06→22:03)
[2023-06-14] MEDS: THEOPHYLLINE 24 HOUR 400 MG CAP.ER.24H PO SCH (11:53)
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
[2023-06-14] MEDS: FUROSEMIDE 40 MG TAB PO SCH (13:48)
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
[2023-06-15] MEDS: IPRATROPIUM-ALBUTEROL 3 ML NEB INHALATION PRN ×2 (00:38→03:38)
[2023-06-15] MEDS: ALPRAZolam 0.5 MG TAB PO PRN (00:50)
[2023-06-15] MEDS: methylPREDNISolone SOD SUCCI 125 MG/2 ML VIAL IV SCH ×4 (00:50→17:48)
[2023-06-15] MEDS: HYDROcodone/APAP 5-325MG 1 EACH TAB PO SCH ×4 (04:16→22:16)
[2023-06-15] MEDS: FORMOTEROL FUMARATE 20 MCG/2 ML NEBU INHALATION SCH ×2 (07:47→21:13)
[2023-06-15] MEDS: BUDESONIDE 1 MG/2 ML NEBU INHALATION SCH ×2 (07:47→21:13)
[2023-06-15] MEDS: IPRATROPIUM-ALBUTEROL 3 ML NEB INHALATION SCH ×4 (07:47→21:13)
[2023-06-15] MEDS: VALSARTAN 160 MG TAB PO SCH (08:30)
[2023-06-15] MEDS: SENNOSIDES 8.6 MG TAB PO SCH ×2 (08:30→22:16)
[2023-06-15] MEDS: METOPROLOL SUCCINATE (ER) 100 MG TAB.ER.24H PO SCH (08:30)
[2023-06-15] MEDS: THEOPHYLLINE 24 HOUR 400 MG CAP.ER.24H PO SCH (08:30)
[2023-06-15] MEDS: FUROSEMIDE 40 MG TAB PO SCH (08:30)
[2023-06-15] MEDS: BENZONATATE 100 MG CAP PO SCH ×3 (08:30→22:15)
[2023-06-15] MEDS: APIXABAN 5 MG TAB PO SCH ×2 (08:30→22:16)
[2023-06-15] MEDS: NYSTATIN 100,000 UNIT/ML SUSP 500,000 UNIT/5 ML CUP PO SCH ×4 (08:32→22:17)
[2023-06-15] MEDS: NICOTINE 21MG/24HR PATCH TRANSDERM SCH (09:15)
[2023-06-15 10:05] LABS: Basophils # (A) 0.02 X 10*3/uL (0.00-0.10); Basophils % (A) 0.2 %; Eosinophils # (A) 0 X 10*3/uL (0.04-0.35); Eosinophils % (A) 0 %; HCT 45.1 % (39.6-50.0); Lymphocytes # (A) 0.41 X 10*3/uL (0.90-5.00); Lymphocytes % (A) 3.1 %; MCH 30.7 pg (27.0-32.0); MCHC 33.3 d/dL (32.0-37.0); MCV 92.2 FL (80.0-97.0); Mean Platelet Volume 11.5 FL (9.5-12.2); Monocytes # (A) 0.58 X 10*3/uL (0.20-1.00); Monocytes % (A) 4.4 %; NRBC Per 100 WBC 0 X 10*3/uL (0.00-0.01); Neutrophils # (A) 11.98 X 10*3/uL (1.80-7.70); Neutrophils % (A) 90.9 %; Platelet Count 156 X 10*3/uL (140-440); RBC 4.89 X 10*6/uL (4.40-5.60); RDW 13.5 % (11.5-14.5); WBC 13.17 X 10*3/uL (4.50-10.00)
[2023-06-15 10:20] LABS: BUN/Creat Ratio 35.22 Ratio (12.00-20.00); Blood Urea Nitrogen 63.4 mg/dL (9.0-27.0); Calcium 8.8 mg/dL (8.7-10.3); Carbon Dioxide 30.4 mmol/L (21.6-31.8); Chloride 95 mmol/L (96-109); Glucose 201 mg/dL (70-110); Potassium 4.8 mmol/L (3.5-5.5); Sodium 137 mmol/L (135-145)
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
--- NOTE | 2023-06-15 15:24 | US ---
EXAMINATION TYPE: US renals and bladder DATE OF EXAM: 06/15/2023 COMPARISON: NONE CLINICAL INDICATION: Male, 72 years old with history of anderson; Abnormal labs. EXAM MEASUREMENTS: Right Kidney: 9.6 x 4.7 x 5.2 cm Left Kidney: 10.8 x 5.1 x 5.4 cm Right Kidney: Inferior pole obscured by bowel gas. No prominent masses or lesions seen. Left Kidney: Limited due to bowel gas. No prominent masses or lesions seen. Bladder: Distended, anechoic Bilateral Jets not seen There is no evidence for hydronephrosis at this point in time. No nephrolithiasis is seen. No lauri s are identified. The urinary bladder is anechoic. Bilateral ureteral jets are not seen. The renal cortices are mildly echogenic and thinned consistent with mild medical renal disease IMPRESSION: 1. Renal cortices suggestive of mild medical renal disease. 2. No solid renal mass, hydronephrosis or renal calcification.
[2023-06-15] MEDS ORDERED: DILTIAZEM DRIP BOLUS FROM BAG 1 MG SOLN IV STA (21:02)
[2023-06-15] MEDS ORDERED: DILTIAZEM 125 MG in SODIUM CHLORIDE 0.9% 100 ML IV SCH (21:15)
[2023-06-16] MEDS: IPRATROPIUM-ALBUTEROL 3 ML NEB INHALATION PRN ×2 (00:04→04:36)
[2023-06-16] MEDS: methylPREDNISolone SOD SUCCI 125 MG/2 ML VIAL IV SCH ×3 (00:40→12:22)
[2023-06-16] MEDS: ALPRAZolam 0.5 MG TAB PO PRN ×4 (00:40→21:17)
[2023-06-16] MEDS ORDERED: DILTIAZEM 5 MG/ML 5 ML VIAL IVP STA ×2 (02:51→02:56)
[2023-06-16] MEDS ORDERED: DILTIAZEM DRIP BOLUS FROM BAG 1 MG SOLN IV STA (02:53)
[2023-06-16] MEDS ORDERED: DILTIAZEM ORAL 30 MG TAB PO STA (03:27)
[2023-06-16] MEDS: HYDROcodone/APAP 5-325MG 1 EACH TAB PO SCH ×5 (03:34→20:48)
[2023-06-16] MEDS ORDERED: METOPROLOL TARTRATE 25 MG TAB PO STA (04:59)
[2023-06-16] MEDS: APIXABAN 5 MG TAB PO SCH ×3 (08:07→21:17)
[2023-06-16] MEDS: BENZONATATE 100 MG CAP PO SCH ×4 (08:08→21:17)
[2023-06-16] MEDS: METOPROLOL SUCCINATE (ER) 100 MG TAB.ER.24H PO SCH (08:08)
[2023-06-16] MEDS: THEOPHYLLINE 24 HOUR 400 MG CAP.ER.24H PO SCH (08:08)
[2023-06-16] MEDS: VALSARTAN 40 MG TAB PO SCH (08:09)
[2023-06-16] MEDS: NYSTATIN 100,000 UNIT/ML SUSP 500,000 UNIT/5 ML CUP PO SCH ×4 (08:09→20:53)
[2023-06-16] MEDS: SENNOSIDES 8.6 MG TAB PO SCH ×2 (08:50→20:54)
[2023-06-16] MEDS: NICOTINE 21MG/24HR PATCH TRANSDERM SCH (08:50)
[2023-06-16] MEDS: BUDESONIDE 1 MG/2 ML NEBU INHALATION SCH ×2 (08:56→19:53)
[2023-06-16] MEDS: FORMOTEROL FUMARATE 20 MCG/2 ML NEBU INHALATION SCH ×2 (08:56→19:53)
[2023-06-16] MEDS: IPRATROPIUM-ALBUTEROL 3 ML NEB INHALATION SCH ×4 (08:56→19:54)
[2023-06-16 09:57] LABS: Basophils # (A) 0.2 k/uL (0-0.2); Basophils % (A) 1 %; Eosinophils % (A) 0 %; HCT 48.8 % (39.0-53.0); HGB 15.7 gm/dL (13.0-17.5); Lymphocytes # (A) 0.3 k/uL (1.0-4.8); Lymphocytes % (A) 2 %; MCH 31.1 pg (25.0-35.0); MCHC 32.2 g/dL (31.0-37.0); MCV 96.6 fL (80.0-100.0); Mean Platelet Volume 9.5; Monocytes # (A) 0.4 k/uL (0-1.0); Monocytes % (A) 3 %; Neutrophils # (A) 13.8 k/uL (1.3-7.7); Neutrophils % (A) 94 %; Platelet Count 168 k/uL (150-450); RBC 5.05 m/uL (4.30-5.90); RDW 13.1 % (11.5-15.5); WBC 14.6 k/uL (3.8-10.6)
[2023-06-16 10:23] LABS: African American GFR (CKD) 58 (>60 ml/min/1.73 sqM); Anion Gap 9 mmol/L; Blood Urea Nitrogen 63 mg/dL (9-20); Calcium 8.8 mg/dL (8.4-10.2); Carbon Dioxide 32 mmol/L (22-30); Chloride 92 mmol/L (98-107); Glucose 223 mg/dL (74-99); Magnesium 2.7 mg/dL (1.6-2.3); Non-African American GFR(CKD) 50 (>60 ml/min/1.73 sqM); Potassium 5.4 mmol/L (3.5-5.1); Sodium 133 mmol/L (137-145)
[2023-06-16 13:01] LABS: ABG Base Excess 5.2 mmol/L; ABG HCO3 29 mmol/L (21-25); ABG Oxygen Saturation 91.3 % (94-97); ABG PCO2 39 mmHg (35-45); ABG PH 7.48 (7.35-7.45); ABG TCO2 30 mmol/L (19-24); Allen Test Performed? Yes
[2023-06-16 13:04] LABS: ABG PO2 59 mmHg (83-108)
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
[2023-06-17] MEDS: HYDROcodone/APAP 5-325MG 1 EACH TAB PO SCH ×3 (03:25→15:09)
[2023-06-17 07:55] VITALS: BP 139/83; RESP 19; TEMP 97.8
[2023-06-17] MEDS: SENNOSIDES 8.6 MG TAB PO SCH (08:22)
[2023-06-17] MEDS: APIXABAN 5 MG TAB PO SCH (08:22)
[2023-06-17] MEDS: BENZONATATE 100 MG CAP PO SCH ×2 (08:22→17:24)
[2023-06-17] MEDS: METOPROLOL SUCCINATE (ER) 100 MG TAB.ER.24H PO SCH (08:23)
[2023-06-17] MEDS: THEOPHYLLINE 24 HOUR 400 MG CAP.ER.24H PO SCH (08:23)
[2023-06-17] MEDS: VALSARTAN 40 MG TAB PO SCH (08:23)
[2023-06-17] MEDS: NICOTINE 21MG/24HR PATCH TRANSDERM SCH ×2 (08:23→08:36)
[2023-06-17] MEDS: NYSTATIN 100,000 UNIT/ML SUSP 500,000 UNIT/5 ML CUP PO SCH ×3 (08:23→17:24)
[2023-06-17] MEDS: ALPRAZolam 0.5 MG TAB PO PRN ×2 (08:35→17:24)
[2023-06-17] MEDS ORDERED: predniSONE 20 MG TAB PO SCH (09:00)
[2023-06-17] MEDS: FORMOTEROL FUMARATE 20 MCG/2 ML NEBU INHALATION SCH (09:58)
[2023-06-17] MEDS: IPRATROPIUM-ALBUTEROL 3 ML NEB INHALATION SCH ×3 (09:58→16:45)
[2023-06-17] MEDS: BUDESONIDE 1 MG/2 ML NEBU INHALATION SCH (09:58)
[2023-06-17 11:25] VITALS: PULSE 60
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
== END 2023-06-17 18:25 | disposition home health service (06) | DRG 190 ==
LOC: EC 18:17 → 4SSUR 20:44 → 2SICU 06-03 06:36 → 4SSUR 06-11 23:15
PROVIDERS: ADMIT Internal Medicine; ATTEND Internal Medicine
PROC: 5A09357 Assistance with Respiratory Ventilation, Less than 24 Consecutive Hours, Continuous Positive Airway Pressure (ICD-10-PCS; principal; 2023-06-04)
PROC: 0CJS8ZZ Inspection of Larynx, Via Natural or Artificial Opening Endoscopic (ICD-10-PCS; 2023-06-13)
DX: J44.1 Chronic obstructive pulmonary disease with (acute) exacerbation (principal); J96.21 Acute and chronic respiratory failure with hypoxia; B37.0 Candidal stomatitis; I48.92 Unspecified atrial flutter; N17.9 Acute kidney failure, unspecified; R64 Cachexia; I87.2 Venous insufficiency (chronic) (peripheral); J31.0 Chronic rhinitis; E87.5 Hyperkalemia; F17.210 Nicotine dependence, cigarettes, uncomplicated; F41.9 Anxiety disorder, unspecified; I10 Essential (primary) hypertension; T38.0X5A Adverse effect of glucocorticoids and synthetic analogues, initial encounter; I48.0 Paroxysmal atrial fibrillation; M72.0 Palmar fascial fibromatosis [Dupuytren]; N40.0 Benign prostatic hyperplasia without lower urinary tract symptoms; I49.1 Atrial premature depolarization; S22.42XD Multiple fractures of ribs, left side, subsequent encounter for fracture with routine healing; R00.0 Tachycardia, unspecified; R79.1 Abnormal coagulation profile; V28.4 Motorcycle driver injured in noncollision transport accident in traffic accident; Y93.55 Activity, bike riding; Z79.899 Other long term (current) drug therapy; Z87.820 Personal history of traumatic brain injury; M54.31 Sciatica, right side; M10.9 Gout, unspecified; Z28.310 Unvaccinated for COVID-19; Z28.21 Immunization not carried out because of patient refusal; Z68.26 Body mass index [BMI] 26.0-26.9, adult; Z87.01 Personal history of pneumonia (recurrent); Z96.651 Presence of right artificial knee joint; Z79.891 Long term (current) use of opiate analgesic; Z82.5 Family history of asthma and other chronic lower respiratory diseases
CPT/HCPCS: 36415; 36600; 71045; 71046; 71275; 76770; 80048; 80053; 82805; 83605; 83735; 83880; 84145; 84439; 84443; 84484; 85025; 85027; 85379; 85610; 85730; 93005; 93306; 94640; 94660; 94760; 96365; 96375; 99291